=== PATIENT | male | born 1955 | race Caucasian/White ===

== ENCOUNTER → 2016-09-11 | Outpatient (CLI) | payer OTHER ==
[2016-09-11 14:06] LABS: Basophils % (A) 1 %; CH 27.1; CHCM 31.8; Eosinophils # (A) 0.1 k/uL (0-0.7); Eosinophils % (A) 2 %; HCT 45.7 % (39.0-53.0); HDW 2.76; HGB 14.6 gm/dL (13.0-17.5); Hypochromasia Slight; Luc % (Auto) 1; Lymphocytes # (A) 1.5 k/uL (1.0-4.8); Lymphocytes % (A) 21 %; MCH 27.3 pg (25.0-35.0); MCHC 31.9 g/dL (31.0-37.0); MCV 85.5 fL (80.0-100.0); Mean Platelet Volume 6.5; Monocytes # (A) 0.3 k/uL (0-1.0); Monocytes % (A) 4 %; Neutrophils # (A) 5.3 k/uL (1.3-7.7); Neutrophils % (A) 71 %; RBC 5.34 m/uL (4.30-5.90); RDW 14.1 % (11.5-15.5); WBC 7.4 k/uL (3.8-10.6); WBC (Perox) 8.09
[2016-09-11 14:09] LABS: INR 1.1 (<1.1); Partial Thromboplastin Time 22.2 sec (22.0-30.0); Prothrombin Time 10.7 sec (9.0-12.0)
[2016-09-11 14:19] LABS: ALT 41 U/L (21-72); AST 23 U/L (17-59); Alkaline Phosphatase 65 U/L (38-126); Anion Gap 12 mmol/L; Blood Urea Nitrogen 20 mg/dL (9-20); Calcium 9.2 mg/dL (8.4-10.2); Carbon Dioxide 24 mmol/L (22-30); Chloride 105 mmol/L (98-107); Glucose 135 mg/dL (74-99); Non-African American GFR(MDRD) >60 (>60 ml/min/1.73 sqM); Potassium 4.9 mmol/L (3.5-5.1); Sodium 141 mmol/L (137-145); Total Bilirubin 0.4 mg/dL (0.2-1.3); Total Protein 6.8 g/dL (6.3-8.2)
== END | disposition home or self-care (01) ==
LOC: LABPAT 12:36
PROVIDERS: ATTEND Orthopaedic Surgery Orthopaedic Surgery of the Spine
DX: Z01.812 Encounter for preprocedural laboratory examination (principal)
CPT/HCPCS: 80053; 85025; 85610; 85730; 86850; 86900; 86901; 87070

== ENCOUNTER 2016-09-19 05:55 | Inpatient (IN) | payer OTHER ==
[2016-09-17 15:35] VITALS: BMI 34.7
[~2016-09-19 05:55] MED LIST: BACITRACIN 50,000 UNIT, POLYMYXIN B 500,000 UNIT in SODIUM CHLORIDE 0.9% IRRIGATIO 1,00... IRRIGATION ONE; DEXAMETHASONE SOD PHOSPHATE 10 MG/ML 1 ML VIAL IV ONE; HYDROmorphone 1 MG/ML 1 ML SYRINGE IVP PRN; MIDAZOLAM 2 MG/2 ML VIAL IV PRN; ceFAZolin 3 GM in SODIUM CHLORIDE 0.9% 100 ML IVPB ONE
[2016-09-19 06:43] LABS: Glucose,Whole Blood 105 mg/dL (75-99)
[2016-09-19] MEDS: LACTATED RINGERS 1,000 ML IV SCH (06:44)
[2016-09-19] MEDS: ONDANSETRON 4 MG/2 ML VIAL IVP ONE ×2 (06:45→14:48)
[2016-09-19] MEDS ORDERED: LIDOCAINE 1% 20 ML VIAL (10MG/ML) FOR IV START INTRADERMA ONE (06:45)
--- NOTE | 2016-09-19 07:07 | XR ---
EXAMINATION TYPE: XR chest 2V DATE OF EXAM: 09/19/2016 7:00 AM COMPARISON: NONE HISTORY: Preop lumbar surgery. TECHNIQUE: Frontal and lateral views of the chest are obtained. FINDINGS: Heart and mediastinum are normal. Lungs are clear. Diaphragm is normal. Bony thorax is int act. There is no sign of pleural effusion. IMPRESSION: No active cardiopulmonary disease. Normal heart.
[2016-09-19] MEDS ORDERED: MIDAZOLAM 2 MG/2 ML VIAL ONE (07:30)
[2016-09-19] MEDS ORDERED: GLYCOPYRROLATE 0.2 MG/ML 2 ML VIAL ONE (07:30)
[2016-09-19] MEDS ORDERED: PHENYLEPHRINE-0.9% NACL SYG 1 MG/10 ML SYRINGE ONE (07:30)
[2016-09-19] MEDS ORDERED: BUPIVACAINE (PF) 0.25% 30 ML VIAL SQ ONE (07:30)
[2016-09-19] MEDS ORDERED: VECURONIUM 10 MG VIAL IV ONE (07:30)
[2016-09-19] MEDS ORDERED: fentaNYL (PF) 50 MCG/ML 2 ML AMP ONE (07:30)
[2016-09-19] MEDS ORDERED: GELATIN SPONGE,ABSORB (LARGE) 1 EACH SPONGE TOPICAL ONE (07:30)
[2016-09-19] MEDS ORDERED: HYDROmorphone (PF) 1 MG/ML ONE (07:30)
[2016-09-19] MEDS ORDERED: ALBUMIN HUMAN 5% 250 ML BOTTLE IVPB ONE (07:30)
[2016-09-19] MEDS ORDERED: SUCCINYLCHOLINE CHLORIDE VIAL 200 MG/10 ML VIAL IV ONE (07:30)
[2016-09-19] MEDS ORDERED: THROMBIN (BOVINE) 5,000 UNIT VIAL TOPICAL ONE (07:30)
[2016-09-19] MEDS ORDERED: PROPOFOL 10 MG/ML 20 ML VIAL IV ONE (07:30)
[2016-09-19] MEDS ORDERED: LIDOCAINE 0.5%-EPI 1:200,000 50 ML VIAL SQ ONE (07:30)
[2016-09-19] MEDS ORDERED: LACTATED RINGERS 1,000 ML IV ONE (09:48)
--- NOTE | 2016-09-19 09:59 | XR ---
Limited lumbar spine HISTORY: Needle placement Correlation to CT scan 12 July 2014 Single lateral view of the lumbar spine submitted. There is a metallic probe present over the posteri or elements of the L4 vertebral body. Listhesis present at L5-S1. Spondylolysis, loss of disc height at L5-S1 is noted. IMPRESSION: Orthopedic localization
[2016-09-19] MEDS ORDERED: HYDROmorphone 1 MG/ML 1 ML SYRINGE IVP PRN ×2 (11:45)
[2016-09-19] MEDS ORDERED: BENZOCAINE/MENTHOL LOZENG 1 EACH LOZENGE MUCOUS MEM PRN (11:45)
[2016-09-19] MEDS ORDERED: DIAZEPAM 5 MG TAB PO PRN (11:45)
[2016-09-19] MEDS ORDERED: HYDROcodone/APAP 5-325MG 1 EACH TAB PO PRN (11:45)
--- NOTE | 2016-09-19 11:56 | P.OP ---
Date of Procedure: 09/19/16 Preoperative Diagnosis: Grade 3 spondylolisthesis L5-S1, spinal stenosis L4 5 L5-S1, degenerative disc disease L4 5 L5-S1, facet arthrosis L4 5 L5-S1, spinal stenosis, lower extremity radiculopathy Postoperative Diagnosis: Same Anesthesia: GETA Pathology: none sent Condition: stable Disposition: PACU Description of Procedure: BRIEF OPERATIVE NOTE Preoperative Diagnosis: Grade 3 spondylolisthesis L5-S1, degenerative disc disease L4 5 L5-S1, spinal stenosis L4 5 L5-S1, facet arthrosis L4 5 L5-S1, lower extremity radiculopathy Postoperative Diagnosis: Same Procedure: Laminectomy and decompression L4 5 L5-S1 Posterior lateral decompression and fusion L4 5 L5-S1 Transforaminal lumbar interbody fusion for a 360 fusion L5-S1 Reduction of spondylolisthesis L5-S1 Discectomy for decompression L5-S1 Aspiration of bone marrow aspirate from right iliac crest through a separate fascial incision with a aspiration device Placement of interbody graft L5-S1 Local autogenous bone grafting Use of Cell Saver Use of bone graft extenders Use of neuro monitoring Surgeon: Dr. [employer] Supervisor: Je Sun is present throughout the entire the case persistence during positioning, dissection, exposure, visualization, and all crucial elements of the case as well as closure. Anesthesia: General anesthesia Estimated blood loss: Approximately 1000 mL with 414 given back through Cell Saver Complications: None apparent Components implanted: K2M [place] pedicle screw system with use of 6 pedicle screws measuring 6.5 and 7.5 m and two rods one cross-link and interbody peek cage at L5-S1 measuring 6 mm, along with osteo amp sponge and bone chips to be mixed with the bone marrow aspirate to supplemental local autogenous bone graft Disposition: To recovery room in good stable condition. OPERATIVE INDICATIONS The patient has had long-standing issues in their lower back and lower extremities. His found have a high-grade spondylolisthesis L5-S1 with severe degeneration and evidence of stenosis. His findings with stenosis L4 5 and L5- S1 correlate well with his low back and lower extremity symptoms. The patient has been through conservative treatment. He is not having any prolonged benefit despite aggressive conservative treatment. We discussed various treatment options including surgery, and the patient wishes to proceed with surgery We discussed the risk, patient's alternatives and benefits of surgery including but not limited to, risk of bleeding risk of infection, risk of need for further surgery, risk of decreased, loss of motion, muscle function, malunion nonunion, hardware failure, nerve damage, paralysis, heart attack, blindness and . OPERATIVE SUMMARY After discussing all the risks, patient alternatives and benefits at length, the patient elected to proceed with surgical intervention, signed informed consent, and presented for their procedure. The patient was seen and examined in the preoperative holding area and the surgical site was marked. The patient was given antibiotics and brought to the operating room. The patient was sedated and intubated by anesthesia in standard fashion. The patient was positioned on to the operating room table in a prone position on the appropriate frame which was well-padded and well molded. We were careful to pad any bony prominences and pressure points. We were careful to maintain the patient's cervical spine and good neutral alignment and position throughout. The patient was prepped and draped in a normal standard fashion. An appropriate timeout and keystone protocol performed. We were able to proceed with the surgery. The local wound area was infiltrated with local anesthetic. An incision was made at the midline longitudinally over the appropriate levels from L4 to S1 at L4 along with the spondylolisthesis L5-S1. Dissection was taken down subcutaneously to the level of the fascia which was split midline. Dissection was taken over the lamina bilaterally over the facet joints and to the transverse processes. Intraoperative x-ray was taken which showed a marker at the appropriate level. With the appropriate level positively confirmed, we were able to proceed with placement of the pedicle holes and screws. The patient had all their twitches back. The wound was copiously irrigated and suctioned dry as had been done periodically throughout the case. Screw holes were established similarly at each level. A sharp awl was used to establish the starting hole. It was palpated and found to have good for balderas and good base. A monitored Steffee probe was used to establish the pedicle hole. It was positioned so there was no stimulation at 12 mA. The hole was palpated and found to have good for balderas and a good base. The hole was tapped with the appropriate sized tap. The transverse process or sacral ala was decorticated with a high-speed bur. I was able to use these holes to place the appropriate size screw and good alignment and good position with good bony purchase. When the screws were inserted there were stimulated, and found to have no stimulation at 20 mA. Through a separate fascial incision on the right side I was able place a bone marrow aspirate device into the right iliac crest. I was able to seat it appropriately and then aspirated approximately 15 mL of bone marrow aspirate which was used to mix with the OsteAmp sponge and cancellus chips. These were use later in the case I was able to turn my attention to the decompression. decompression was performed with a combination of rongeurs, curettes, Kerrison rongeurs and a ball -tip feeler. All of the bone that was removed was stripped and morcellized for use as autogenous bone graft later in the case. There is an obvious large Ramachandran fragment at L5 which was removed and saved for bone grafting. There was severe bilateral foraminal stenosis causing significant impingement and this was relieved with the decompression. I was able to obtain good central decompression as well as wide bilateral foraminal decompression. There is no evidence of dural tear or leak. Good hemostasis was maintained. The wound was irrigated and suctioned dry. I performed a complete facetectomy at the appropriate level on the most symptomatic side on the right at L4 5 and L5-S1. All bone that was removed was saved for local autogenous bone grafting. I was able to gain access to the disc space at the appropriate level/levels. Good hemostasis was maintained. I was able to protect the neurologic structures. Note was made of obvious listhesis at L5-S1 and some disc protrusion dosing further stenosis. A discectomy was performed at L5-S1. This provided further decompression. I was also able to perform complete discectomy and endplate preparation with a combination of pituitary curettes, rasps and scrapers. With the interbody space prepared, I was able to do appropriate sizing. The appropriate size cage was chosen. The wound was irrigated and suctioned dry. The interbody space was packed with local autogenous bone graft and a small portion of bone graft substitute, as was the cage itself. Protecting the soft tissue structures, I was able place the cage in good alignment and good position with good fit and fill. There is no evidence of extrusion of the graft material nor protrusion of the interbody device. The wound was irrigated and suctioned dry. At L4 5 the disc was quite large and decided not to put an interbody spacers there may have been some impingement of the nerve during insertion. With the hardware intact, intraoperative x-ray was again taken which showed good alignment and position of the hardware at the appropriate levels at L4 5 and L5-S1 with some reduction of the listhesis L5-S1 with improved disc space. We were then able to measure, contour and place the rods and appropriate hardware bilaterally. I was able to place capcrews, tighten them down, and shear them off appropriately. The sheared portion was counted and accounted for. With this intact I was able to place the local autogenous bone graft with additional bone graft enhancer as necessary into the posterior lateral gutters bilaterally. With the bone graft intact, a stable construct, and good decompression at the appropriate levels, we were able to proceed with closure. Good hemostasis was maintained. There is no evidence of dural tear or leak. The fascia was closed for a watertight closure. The subcutaneous tissue was closed over a superficial drain. The subcuticular tissue was closed with absorbable suture. The wound was cleaned and dried and dressed with the appropriate dressing. The drapes were broken down. The patient was gently rolled back onto their hospital bed being careful to maintain their cervical spine and good neutral alignment and position. They were woken up by anesthesia , extubated, and brought to the recovery room in good stable condition. The patient will be admitted to the hospital for appropriate postoperative care , medical management and monitoring. We will continue to follow them closely about the postoperative course.
[2016-09-19 12:22] LABS: Glucose,Whole Blood 124 mg/dL (75-99)
--- NOTE | 2016-09-19 13:20 | XR ---
Limited lumbar spine HISTORY: Hardware placement, posterior lumbar fusion 2 views of the lumbar spine correlated to prior exam on same date at earlier time There is been interval posterior fusion at L4-5 S1. Alignment is stable. One of the transpedicular sc rews is thought to be coursing into the disc space at L3-4 on the left. IMPRESSION: Orthopedic follow-up as described
[2016-09-19] MEDS: HYDROmorphone PCA 5 MG/25 ML SYRINGE IV PRN (15:08)
[2016-09-19] MEDS: ceFAZolin 3 GM in SODIUM CHLORIDE 0.9% 100 ML IVPB SCH (16:12)
[2016-09-19] MEDS: GABAPENTIN 100 MG CAP PO SCH ×2 (16:12→21:32)
[2016-09-19] MEDS: GLIMEPIRIDE 2 MG TAB PO SCH (16:14)
[2016-09-19] MEDS: metFORMIN 500 MG TAB PO SCH (16:15)
--- NOTE | 2016-09-19 17:38 | P.CON ---
Consult Note - . Assessment/Plan:: This is a dictation on the consult for medical management. Dictating the consult by Dr. Carol Christianson FACP. Patient seen and evaluated post operative. Patient underwent decompression of the lumbar spine at L5-S1 with the underlying spondylolisthesis and severe pain and radiculopathy on the right lower extremities severe pain not resolving with conservative therapy including physical therapy, and the diagnosis is spondylo-listhesis at L4-L5 and L5-S1. Patient with the current medical history of: #1 diabetes mellitus type 2 on oral hypoglycemic agent #2 hyperlipidemia. #3 hypertension with hypertensive heart disease. #4 vitamin D insufficiency. #5 diabetic neuropathy. #6 low back pain with unsteady gait associated with degenerative disc disease and diabetic neuropathy. #7 history of nephrolithiasis was treated by urology associate. Patient had the right foot drop with brace, and he need dental care with the broken teeth and molar., Patient had no history of IN in the past. Review of system was -14 point. His vital sign: Was fluctuating with the lowest 94/69 with a mean 77. His heart rate was mild tachycardia and the highest was 108-1 13/m. Patient on DVT prophylaxis by using SCDs with intermittent compression post back surgery. On the exam: Patient on Tricia chair. Conscious alert oriented, his girlfriend at bedside, receiving dialyzed at 4 pain through URBAN ANTHROPOLOGIST with no pain rating at this time With the low blood pressure the give him Ringer lactate and will be by the anesthesia subsequently he will be changed to normal saline 75 mL an hour. And we'll be checking his BMP and CBC tomorrow in a.m. HEENT: Pupils equal reactive conjunctiva was pink sclera was nonicteric, oropharynx natural disease with the broken disease at the gumline several uvula midline and no facial symmetry nose was negative. Neck was supple no JVD no thyromegaly no lymph adenopathy trachea midline. Chest clear to auscultation and percussion no wheezes no rhonchi's no rales. The heart regular sinus rhythm with the tachycardia postoperative. Abdomen: Obese positive bowel sounds no tenderness on the 4 quadrant. Extremities: He has perfused lower extremities with atherothrombotic stocking for DVT prophylaxis. Neurologically stable and able to move his feet. Assessment and plan #1 borderline hypotension postoperative expected. #2 diabetes mellitus on oral hypoglycemic agent. #3 history of hypertension with hypertensive heart disease. #4 status post decompression with the right radiculopathy and spondylolisthesis. #5 diabetic neuropathy. Reviewed the laboratory was done in August 1716 indicating blood sugar was 135 and sodium 141 potassium 4.9 chloride 105 carbon dioxide 24 and blood urea nitrogen 20 creatinine 0.96 the glomerular filtration rate for non- more than 60. He has normal liver enzyme at that time and have pro-his pro time was 10.7 and INR was 1.1 and a PTT 22.2 with the white count was 7.4 and a hemoglobin 14.6 and the hematocrit 45.7 and the platelet count 244 and his urine analysis was negative for infection. Today we adjusted his lisinopril to 5 mg daily and to hold the blood pressure medication if the blood pressure less than 110 systolic. We'll start him on CBG before meals and at bedtime with the insulin Humalog to scale to be started in the level above 151 only with the patient underlying treated with metformin and glipizide and to monitor the hypoglycemia as well. The IV fluid will be change it to 0.9 normal saline tomorrow or tonight when the infusion of the finger lactate ordered by the doctor Bassam and anesthesia done. We'll check tomorrow in a.m. BMP and a CBC with differential. The the end of dictation thank you for letting participate in the care of Mr. Andrea orellana.
[2016-09-19] MEDS: ONDANSETRON 4 MG/2 ML VIAL IVP PRN (17:43)
[2016-09-19 17:51] LABS: Glucose,Whole Blood 142 mg/dL (75-99)
[2016-09-19] MEDS: INSULIN LISPRO (humaLOG) 300 UNIT/3 ML VIAL SQ SCH ×2 (17:59→21:31)
[2016-09-19 20:34] LABS: Glucose,Whole Blood 124 mg/dL (75-99)
[2016-09-19] MEDS ORDERED: LISINOPRIL 10 MG TAB PO SCH (21:00)
[2016-09-19] MEDS: METOPROLOL TARTRATE 25 MG TAB PO SCH (21:33)
[2016-09-19] MEDS: SODIUM CHLORIDE 0.9% 1,000 ML IV SCH ×2 (21:34→23:56)
[2016-09-20] MEDS: ceFAZolin 3 GM in SODIUM CHLORIDE 0.9% 100 ML IVPB SCH (00:02)
[2016-09-20] MEDS: HYDROcodone/APAP 5-325MG 1 EACH TAB PO PRN ×3 (06:09→20:53)
[2016-09-20 07:48] LABS: Glucose,Whole Blood 139 mg/dL (75-99)
[2016-09-20 08:31] LABS: Anion Gap 11 mmol/L; Blood Urea Nitrogen 16 mg/dL (9-20); Calcium 8.1 mg/dL (8.4-10.2); Carbon Dioxide 24 mmol/L (22-30); Chloride 103 mmol/L (98-107); Glucose 131 mg/dL (74-99); Non-African American GFR(MDRD) >60 (>60 ml/min/1.73 sqM); Potassium 4.3 mmol/L (3.5-5.1); Sodium 138 mmol/L (137-145)
[2016-09-20] MEDS: INSULIN LISPRO (humaLOG) 300 UNIT/3 ML VIAL SQ SCH ×4 (08:45→20:52)
[2016-09-20] MEDS: GABAPENTIN 100 MG CAP PO SCH ×3 (08:47→20:55)
[2016-09-20] MEDS: METOPROLOL TARTRATE 25 MG TAB PO SCH ×2 (08:47→20:54)
[2016-09-20] MEDS: metFORMIN 500 MG TAB PO SCH ×2 (08:48→17:36)
[2016-09-20] MEDS: CHOLECALCIFEROL 1,000 UNIT TAB PO SCH (08:48)
[2016-09-20] MEDS: LACTATED RINGERS 1,000 ML IV SCH (08:56)
[2016-09-20] MEDS ORDERED: SALMON OIL PO SCH (09:00)
[2016-09-20] MEDS ORDERED: OMEGA PO SCH (09:00)
[2016-09-20] MEDS ORDERED: FATTY ACIDS PO SCH (09:00)
--- NOTE | 2016-09-20 09:18 | P.PN ---
Subjective This dictation a progress note date of service 09/20/2016, dictated by Dr. Derick Christianson [facility]. Patient seen and evaluated [id number] Review the laboratories, BMP was normal with the estimated glomerular filtration rate more than 60, glucose has been monitored stable without added insulin so far. Calcium is 8.1 with the presence in the hospital and not eating much. CBC with differential ordered note available yet. His blood pressure was low postoperative now is stable normotensive and we will be cutting down the IV fluid to avoid over hydration, 50 mL an hour 0.9 normal saline. Also he had tachycardia and we will increase his beta blockers metoprolol tartrate to 50 mg in a.m. and 25 mg in the p.m. On the exam is able to stand up without dizziness and ambulate with the physical therapy. HEENT negative able to eat. Neck was supple and no JVD, he had mild conjunctival edema. The chest exam negative normal breath sound no wheezes no rhonchi's no rales. Heart was PMI in the fifth intercostal space outside midclavicular line with the regular sinus tachycardia. He the abdomen soft positive bowel sounds no organ enlargement. No flank pains able to urinate and the Valdez catheter will be removed prior Dr. Benoit T the orthopedic spine surgeon. Patient able to move his ankle extension and flexion which he has history of right foot drop appears to be improved significantly. Assessment and plan. Patient currently stable #1 changes in his medication has been mentioned above and the plan for decrease IV fluid and obtain CBC with differential with the assessment indicating #1 spondylolisthesis status post decompression with the underlying right lower leg pain with foot drop and sciatica. #2 diabetes mellitus type 2 currently controlled #3 hypertension with a history of temporary hypotension. Post op. #4 diabetic neuropathy. #5 tachycardia. Plan: Valdez catheter will be coming out this morning. And continuing the current medication added to the above changes discussed with the nursing staff as well. In regard of the DVT prophylaxis, RAYSHAWN Robin will be checking with Dr. Benoit the time for the start of DVT prophylaxis spatially with the back surgery. Objective - Vital Signs Vital signs: Vital Signs Temp 97.3 F L 09/20/16 07:00 Pulse 109 H 09/20/16 07:00 Resp 18 09/20/16 07:00 BP 120/66 09/20/16 07:00 Pulse Ox 93 L 09/20/16 07:00 Intake & Output 09/19/16 09/20/16 09/20/16 18:59 06:59 18:59 Intake Total 1901 1080 Output Total 1350 800 Balance 551 280 Weight 122.47 kg Intake: IV 1901 Oral 1080 Output: Urine 350 800 Estimated Blood Loss 1000 Other: Voiding Method Indwelling Catheter Indwelling Catheter - Labs CBC & Chem 7: 09/20/16 07:43 Labs: Abnormal Lab Results - Last 24 Hours (Table) 09/19/16 09/19/16 09/19/16 Range/Units 12:21 17:49 20:32 Glucose (74-99) mg/dL POC Glucose (mg/dL) 124 H 142 H 124 H (75-99) mg/dL Calcium (8.4-10.2) mg/dL 09/20/16 09/20/16 Range/Units 07:20 07:43 Glucose 131 H (74-99) mg/dL POC Glucose (mg/dL) 139 H (75-99) mg/dL Calcium 8.1 L (8.4-10.2) mg/dL
--- NOTE | 2016-09-20 09:31 | P.PN ---
Progress Note - Text Postoperative day #1 Patient is seen and examined today at bedside. The patient has some pain around the surgical site as expected. He has already been up and doing some ambulation. He is sitting at bedside. Pain is being controlled with medication with the MARKETING INSTRUCTOR as well as some oral medications. He is using the MARKETING INSTRUCTOR sparingly Physical Exam Afebrile with stable vital signs Abdomen is soft nontender. Chest has good excursion deep and space expiration The incision site is clean dry and intact. No erythema there is no purulence. The drain inadvertently came out last night and there is some minimal swelling. Extremities have had some mild neurologic improvement in dorsiflexion in his lower extremities from prior to surgery. Calves and thighs were soft nontender without evidence of DVT. Assessment/Plan Postoperative day #1 status post decompression and fusion L4 5 L5-S1 for his severe spondylolisthesis with spinal stenosis and lower extremity radiculopathy and weakness Patient is progressing as expected from the surgery. He had some tachycardia overnight is likely due to his acute blood loss anemia. We'll follow his CBC which is already ordered. We will continue to increase the patient's mobilization with therapy. He has been able to get up already which is good progress for him with some improvement in his lower extremity neurologic status. I discussed the case this morning with Dr. Medina. We will continue pain control with oral or IV medications. We'll continue to follow patient closely.
[2016-09-20 09:48] LABS: Basophils # (A) 0.1 k/uL (0-0.2); Basophils % (A) 0 %; CH 27.2; CHCM 31.9; Eosinophils % (A) 0 %; HCT 36.7 % (39.0-53.0); HDW 2.68; HGB 11.9 gm/dL (13.0-17.5); Hypochromasia Slight; Luc # (Auto) 0.11; Luc % (Auto) 1; Lymphocytes # (A) 0.9 k/uL (1.0-4.8); Lymphocytes % (A) 7 %; MCH 27.7 pg (25.0-35.0); MCHC 32.4 g/dL (31.0-37.0); MCV 85.7 fL (80.0-100.0); Mean Platelet Volume 7.5; Monocytes % (A) 7 %; Neutrophils # (A) 11.2 k/uL (1.3-7.7); Neutrophils % (A) 84 %; RBC 4.29 m/uL (4.30-5.90); RDW 14.4 % (11.5-15.5); WBC 13.3 k/uL (3.8-10.6); WBC (Perox) 13.01
[2016-09-20] MEDS: METOPROLOL TARTRATE 50 MG TAB PO SCH (10:26)
[2016-09-20] MEDS: SODIUM CHLORIDE 0.9% 1,000 ML IV SCH (10:30)
[2016-09-20 11:37] LABS: Hemoglobin A1C 6.3 % (4.2-6.1)
[2016-09-20 12:16] LABS: Glucose,Whole Blood 116 mg/dL (75-99)
[2016-09-20] MEDS: LISINOPRIL 5 MG TAB PO SCH (12:52)
[2016-09-20] MEDS: HYDROmorphone PCA 5 MG/25 ML SYRINGE IV PRN (16:53)
[2016-09-20 17:26] LABS: Glucose,Whole Blood 138 mg/dL (75-99)
[2016-09-20] MEDS: GLIMEPIRIDE 2 MG TAB PO SCH (17:36)
[2016-09-20 20:28] LABS: Glucose,Whole Blood 136 mg/dL (75-99)
[2016-09-21] MEDS: LACTATED RINGERS 1,000 ML IV SCH (05:33)
[2016-09-21] MEDS: SODIUM CHLORIDE 0.9% 1,000 ML IV SCH ×2 (05:33→18:02)
[2016-09-21] MEDS: ONDANSETRON 4 MG/2 ML VIAL IVP PRN ×2 (07:08→19:32)
[2016-09-21 07:13] LABS: Glucose,Whole Blood 107 mg/dL (75-99)
[2016-09-21 07:27] LABS: Basophils % (A) 0 %; CHCM 32.1; Eosinophils # (A) 0.1 k/uL (0-0.7); Eosinophils % (A) 0 %; HCT 37.1 % (39.0-53.0); HDW 2.74; HGB 11.6 gm/dL (13.0-17.5); Luc # (Auto) 0.11; Luc % (Auto) 1; Lymphocytes % (A) 8 %; MCH 26.5 pg (25.0-35.0); MCHC 31.4 g/dL (31.0-37.0); MCV 84.4 fL (80.0-100.0); Mean Platelet Volume 7.3; Monocytes # (A) 0.8 k/uL (0-1.0); Monocytes % (A) 6 %; Neutrophils % (A) 85 %; RDW 14.3 % (11.5-15.5); WBC (Perox) 14.13
[2016-09-21] MEDS: INSULIN LISPRO (humaLOG) 300 UNIT/3 ML VIAL SQ SCH ×4 (07:28→21:04)
[2016-09-21] MEDS: GABAPENTIN 100 MG CAP PO SCH ×3 (07:58→21:36)
[2016-09-21] MEDS: metFORMIN 500 MG TAB PO SCH ×2 (07:58→18:04)
[2016-09-21] MEDS: CHOLECALCIFEROL 1,000 UNIT TAB PO SCH (07:59)
[2016-09-21] MEDS: METOPROLOL TARTRATE 50 MG TAB PO SCH (07:59)
[2016-09-21] MEDS: LISINOPRIL 5 MG TAB PO SCH (07:59)
[2016-09-21] MEDS ORDERED: SENNOSIDES-DOCUSATE SODIUM 1 EACH TAB PO PRN (08:18)
--- NOTE | 2016-09-21 08:29 | P.PN ---
Progress Note - Text Orthopedic Spine Patient is a pleasant 61-year-old male who is seen and examined at the bedside following posterior lateral decompression and fusion performed Saturday. Patient states he does not feel he is doing well postsurgically this morning. He states it has been slow to increase his ambulation. He has been able to ambulate short distances. He has difficulty transferring to and from the commode. He states he has been eating but has had some increased nausea this morning. He denies vomiting, fever, or chills. He continues to have some tachycardia postoperatively and has been seen and examined by his primary care provider Dr. Medina. His cardiac medications have been adjusted yesterday. He complains of pain primarily at the surgical site. He has been using his TECHNICAL SALES SUPPORT SPECIALIST less. Patient is eating and voiding freely without difficulty. He states he has not had a bowel movement since admission is usually pretty regularly. He states he has not been passing gas and has mild abdominal discomfort. Physical Exam Lumbar Fusion: Status post surgical day number 2 Patient is awake, alert, and oriented 3 Vital signs stable Good chest excursion with deep inspiration and expiration Abdomen soft nontender Dorsiflexion, plantarflexion, and extensor hallucis longus positive sustained bilaterally No signs or symptoms of DVT; no calf pain; pneumatic cuffs not currently intact bilateral lower extremities Dressing is clean, dry, and intact; no erythema, purulence, or signs of infection Hemovac drain previously removed Neurovascularly intact bilaterally lower extremities Pertinent studies taken on 09/21/2016: WBC 13.0 RBC 4.4 Hemoglobin 11.6 Hematocrit 37.1 Neutrophils 11.0 Pulse rhythm: 110 Assessment: Posterior lateral decompression and fusion L4-5 and L5-S1 Transforaminal lumbar interbody fusion L5-S1 Plan: 1. Ambulate as tolerated; work with Physical Therapy to increase mobilization 2. Continue pain control with IV and oral medications; we will plan to discontinue his TECHNICAL SALES SUPPORT SPECIALIST 3. Dressing changed to paper tape and 4 x 4's; Hemovac drain discontinued 4. Medical management can continue to manage patient for patient's other medical issues including tachycardia 5. We will plan to add Senokot-S and Milk of Magnesia twice a day when necessary for constipation 6. We will continue to follow the patient closely; We discussed the possibility of discharge to rehabilitation facility prior to returning home but the patient is unsure if he is willing to go to rehabilitation at this time 7. Patient can follow-up with Je Santana PA-C or Dr. Remigio Benoit at [facility] in 2-3 weeks following discharge 8. I will discuss this patient in detail with Dr. Remigio Benoit
[2016-09-21] MEDS: HYDROcodone/APAP 5-325MG 1 EACH TAB PO PRN ×3 (11:43→22:57)
[2016-09-21 11:46] LABS: Glucose,Whole Blood 137 mg/dL (75-99)
--- NOTE | 2016-09-21 15:14 | P.PN ---
Subjective Dictation on progress note date of service 09/21/2016. Patient seen and evaluated discussed with the patient and his significant other his girlfriend. The patient has experienced severe pain after his [employer] PIPE has been removed, but subsequently patient was treated and given the be pain medication currently his comfortable. CBC on September 14 71 WBC 13 hemoglobin 11.6/hematocrit 37.1 patient was bleeding with the surgery was estimated by Dr. pressure is 1 L approximate and patient currently has no evidence of severe anemia. He is still tachycardic intermittently and we increased his beta mahesh to 50 mg in the morning and 25 mg at night. His blood pressure is stable On exam: Blood sugar in the range of 137-136-107 with the good control with the current oral hypoglycemic agent. HEENT negative patient able to eat and swallow normally, his significant pain when he started to sit in bed and get to walk as initial step however he is now on pain medication fairly controlling the pain Neck was supple no lymphadenopathy, chest is clear to auscultation and percussion no wheezes no rhonchi's, heart is regular sinus rhythm with intermittent tachycardia, blood pressure has been stable at this time with no evidence of hypoglycemia. He is on 50 mL an hour normal saline 0.9%. Abdomen is obese positive bowel sounds no organ enlargement. Extremities no edema and the use of thrombotic stocking when a bed. The neurologically able to move 4 extremities and ambulate the right foot drop has cleared and able to move his ankle normally. Assessment: #1 decompression of the 05 S1 with the underlying the spondylolisthesis associated with neuropathy as well as right sciatica and right foot drop. #2 significant improvement on the right foot drop. #3 diabetes mellitus type 2 oral hypoglycemic agent and controlled. #4 his blood pressure with a history of hypertension, postoperatively as temporary decrease in his blood pressure however he recovered and also he have some blood loss however did not affect his hemoglobin seriously. #Discussed the DVT prophylaxis with Dr. Banegas and he advised that with the back surgery they do not use any anticoagulant to avoid bleeding and hematoma. Underlying mild anemia and it will be recovered probably after patient improving may need to have iron supplement and that will replenish his hemoglobin. Scuffled with the patient postoperative and probably he is requesting tomorrow [facility] for for further rehabilitation. Objective - Vital Signs Vital signs: Vital Signs Temp 98.2 F 09/21/16 07:00 Pulse 110 H 09/21/16 07:19 Resp 16 09/21/16 07:00 BP 133/77 09/21/16 07:00 Pulse Ox 95 09/21/16 07:00 Intake & Output 09/20/16 09/21/16 09/21/16 18:59 06:59 18:59 Intake Total 980 650 120 Output Total 1000 100 Balance -20 650 20 Intake: IV 500 350 Sodium Chloride 0.9% 1, 500 350 000 ml @ 50 mls/hr IV . Q20H [facility] Rx#:[id number] Oral 480 300 120 Output: Urine 1000 100 Uretheral ([place]) 1000 Other: Voiding Method Indwelling Catheter Toilet Toilet # Voids 1 1 1 - Labs CBC & Chem 7: 09/21/16 06:44 09/20/16 07:43 Labs: Abnormal Lab Results - Last 24 Hours (Table) 09/20/16 09/20/16 09/21/16 Range/Units 17:23 20:27 06:44 WBC 13.0 H (3.8-10.6) k/uL Hgb 11.6 L (13.0-17.5) gm/dL Hct 37.1 L (39.0-53.0) % Neutrophils # 11.0 H (1.3-7.7) k/uL POC Glucose (mg/dL) 138 H 136 H (75-99) mg/dL 09/21/16 09/21/16 Range/Units 06:51 11:41 WBC (3.8-10.6) k/uL Hgb (13.0-17.5) gm/dL Hct (39.0-53.0) % Neutrophils # (1.3-7.7) k/uL POC Glucose (mg/dL) 107 H 137 H (75-99) mg/dL
[2016-09-21 16:55] LABS: Glucose,Whole Blood 125 mg/dL (75-99)
[2016-09-21] MEDS: GLIMEPIRIDE 2 MG TAB PO SCH (18:03)
[2016-09-21] MEDS: MAGNESIUM HYDROXIDE 2,400 MG/10 ML CUP PO PRN (18:08)
[2016-09-21 21:01] LABS: Glucose,Whole Blood 144 mg/dL (75-99)
[2016-09-21] MEDS: METOPROLOL TARTRATE 25 MG TAB PO SCH (21:02)
[2016-09-22 02:21] LABS: Glucose,Whole Blood 138 mg/dL (75-99)
[2016-09-22] MEDS: LACTATED RINGERS 1,000 ML IV SCH (05:40)
[2016-09-22 06:55] LABS: Glucose,Whole Blood 133 mg/dL (75-99)
[2016-09-22 07:25] LABS: Basophils % (A) 0 %; CH 27.1; CHCM 31.6; Eosinophils # (A) 0.1 k/uL (0-0.7); Eosinophils % (A) 1 %; HCT 36.6 % (39.0-53.0); HDW 2.73; HGB 11.3 gm/dL (13.0-17.5); Hypochromasia Slight; Luc % (Auto) 2; Lymphocytes # (A) 1.2 k/uL (1.0-4.8); Lymphocytes % (A) 10 %; MCH 26.4 pg (25.0-35.0); MCHC 30.8 g/dL (31.0-37.0); MCV 85.8 fL (80.0-100.0); Mean Platelet Volume 6.6; Monocytes # (A) 0.8 k/uL (0-1.0); Monocytes % (A) 7 %; Neutrophils # (A) 9.5 k/uL (1.3-7.7); Neutrophils % (A) 80 %; RBC 4.26 m/uL (4.30-5.90); RDW 14.3 % (11.5-15.5); WBC 11.8 k/uL (3.8-10.6); WBC (Perox) 11.99
[2016-09-22 07:34] LABS: Anion Gap 9 mmol/L; Blood Urea Nitrogen 17 mg/dL (9-20); Calcium 8.3 mg/dL (8.4-10.2); Carbon Dioxide 26 mmol/L (22-30); Chloride 103 mmol/L (98-107); Glucose 124 mg/dL (74-99); Non-African American GFR(MDRD) >60 (>60 ml/min/1.73 sqM); Potassium 4.2 mmol/L (3.5-5.1); Sodium 138 mmol/L (137-145)
[2016-09-22] MEDS: INSULIN LISPRO (humaLOG) 300 UNIT/3 ML VIAL SQ SCH ×4 (07:44→20:01)
[2016-09-22] MEDS: metFORMIN 500 MG TAB PO SCH ×2 (08:15→18:07)
[2016-09-22] MEDS: CHOLECALCIFEROL 1,000 UNIT TAB PO SCH (08:15)
[2016-09-22] MEDS: MAGNESIUM HYDROXIDE 2,400 MG/10 ML CUP PO PRN (08:15)
[2016-09-22] MEDS: GABAPENTIN 100 MG CAP PO SCH ×3 (08:15→20:00)
[2016-09-22] MEDS: ONDANSETRON 4 MG/2 ML VIAL IVP PRN (08:15)
[2016-09-22] MEDS: METOPROLOL TARTRATE 50 MG TAB PO SCH ×2 (08:16→20:00)
[2016-09-22] MEDS: LISINOPRIL 5 MG TAB PO SCH (08:16)
[2016-09-22] MEDS: HYDROcodone/APAP 5-325MG 1 EACH TAB PO PRN ×3 (09:19→18:06)
--- NOTE | 2016-09-22 09:52 | P.PN ---
Subjective Principal diagnosis: Posterior lateral decompression and fusion L4-L5 and L5-S1 Transforaminal lumbar interbody fusion L5-S1 This is a 61 year-old male post posterior lateral decompression and fusion. This is post-op day 3. The patient was evaluated at the bedside today. The patient denies nausea, vomiting, abdominal pain, shortness of breath, and chest pain this morning. He states his pain is moderately controlled at this time. The patient has been ambulating in room and up to the bathroom. Objective - Vital Signs Vital signs: Vital Signs Temp 97.7 F 09/22/16 08:11 Pulse 112 H 09/22/16 08:11 Resp 16 09/22/16 08:11 BP 140/83 09/22/16 08:11 Pulse Ox 96 09/22/16 08:11 Intake & Output 09/21/16 09/22/16 09/22/16 18:59 06:59 18:59 Intake Total 360 1000 Output Total 500 840 Balance -140 160 Intake: IV 800 Sodium Chloride 0.9% 1, 800 000 ml @ 50 mls/hr IV . Q20H [facility] Rx#:[id number] Oral 360 200 Output: Urine 500 840 Other: Voiding Method Toilet Urinal # Voids 2 2 - Exam The patient does not appear in acute distress. Alert and orientated x3. Dressing is clean dry and intact. Incision appears fine with no erythema or active drainage. Calves are soft and nontender. Dorsiflexion and plantarflexion is intact bilaterally. Sensation and circulatory status is intact. Numbness in the right lower extremity has improved since surgery. - Labs CBC & Chem 7: 09/22/16 06:29 09/22/16 06:29 Labs: Abnormal Lab Results - Last 24 Hours (Table) 09/21/16 09/21/16 09/21/16 Range/Units 11:41 16:52 20:58 WBC (3.8-10.6) k/uL RBC (4.30-5.90) m/uL Hgb (13.0-17.5) gm/dL Hct (39.0-53.0) % MCHC (31.0-37.0) g/dL Neutrophils # (1.3-7.7) k/uL Glucose (74-99) mg/dL POC Glucose (mg/dL) 137 H 125 H 144 H (75-99) mg/dL Calcium (8.4-10.2) mg/dL 09/22/16 09/22/16 09/22/16 Range/Units 02:17 06:29 06:29 WBC 11.8 H (3.8-10.6) k/uL RBC 4.26 L (4.30-5.90) m/uL Hgb 11.3 L (13.0-17.5) gm/dL Hct 36.6 L (39.0-53.0) % MCHC 30.8 L (31.0-37.0) g/dL Neutrophils # 9.5 H (1.3-7.7) k/uL Glucose 124 H (74-99) mg/dL POC Glucose (mg/dL) 138 H (75-99) mg/dL Calcium 8.3 L (8.4-10.2) mg/dL 09/22/16 Range/Units 06:53 WBC (3.8-10.6) k/uL RBC (4.30-5.90) m/uL Hgb (13.0-17.5) gm/dL Hct (39.0-53.0) % MCHC (31.0-37.0) g/dL Neutrophils # (1.3-7.7) k/uL Glucose (74-99) mg/dL POC Glucose (mg/dL) 133 H (75-99) mg/dL Calcium (8.4-10.2) mg/dL Assessment and Plan (1) Spondylolisthesis at L5-S1 level Status: Acute (2) Spinal stenosis at L4-L5 level Status: Acute (3) Degenerative disc disease, lumbar Status: Acute (4) Status post spinal surgery Status: Acute Plan: 1. Continue pain control 2. DVT prophylaxis with SCDs 3. Continue physical therapy and ambulation 4. Anticipate discharge home vs. rehab in the next 1-2 days.
--- NOTE | 2016-09-22 10:16 | P.PN ---
Progress Note - Text Postoperative day #3 Patient is seen and examined today at bedside. The patient has some pain around the surgical site as expected. He feels his legs are doing well but he still has significant pain in his back. He is passing some gas and had a very small bowel movement. Pain is being controlled with medication. Physical Exam Afebrile with stable vital signs Abdomen is soft nontender. Chest has good excursion deep and space expiration The incision site is clean dry and intact. No erythema there is no purulence. The dressing is clear there is some mild swelling. Extremities have had some improvement in her strength in his lower extremities with his surgery. Calves and thighs were soft nontender without evidence of DVT. Assessment/Plan Postoperative day #3 Status post decompression and fusion L4 5 L5-S1 for his spondylolisthesis with spinal stenosis and lower extremity radiculopathy and weakness. Patient is progressing as expected from the surgery. He feels his improvement is slower than expected and his pain is worse than expected but he continues to make steady progress. We will continue to increase the patient's mobilization with therapy. We will continue pain control with oral or IV medications. We'll continue to follow patient closely. He does have some constipation though he had a small bowel movement. He should continue his laxatives. If he continues to improve he may be able to be discharged for home Saturday or Saturday.
[2016-09-22 11:57] LABS: Glucose,Whole Blood 139 mg/dL (75-99)
--- NOTE | 2016-09-22 13:58 | P.PN ---
Subjective There is a dictation on progress note date of service 09/22/[address] Carol Christianson [facility]. Patient seen [id number] discussed with him today his option as well for going home or penitentiary to continue rehabilitation. We discussed his laboratory with the current laboratory improvement on the white count is hemoglobin A1c 6.3 was well-controlled diabetes mellitus, however his heart rate is ranging between 09/04/2013 and despite of increasing his metoprolol to 50 mg in a.m. and 20 5 in the PM. With this finding only increasing the metoprolol to twice a day 50 mg started today. His vital signs stable no pyrexia no fever no chills his blood pressure is stable at this time with the adjusting his LISA inhibitor. We'll resume his statin home medication at this point. On the physical exam: HEENT negative able to eat and swallow no nausea no vomiting. Neck was supple no JVD no thyromegaly no lymphadenopathy trachea midline. Chest was clear to auscultation and percussion. Heart was regular sinus rhythm compensated Abdomen distended and tympanitic on percussion positive bowel sounds appear to be large amount of flatus and needs to be turned side and also to allow the gas when he have his physical therapy as well as when he ambulate. We will add Mylanta 2 or Maalox plus if it is available in the hospital 15 mL 3 times a day. Extremities: Positive pulses no edema and he was reading the thrombotic stocking for DVT prophylaxis. And he ambulate to the rehab frequently. Assessment: #1 status post decompression at the level of L4 S1 and sciatica on the right side with right foot drop, apparently resolved after the surgery. #2 diabetes mellitus type 2 with hemoglobin A1c 6.3 in good control and continue the current treatment. #3 history of hyperlipidemia. #4 history of hypertension currently controlled. #5 tachycardia still present. Plan: #1 start Mylanta 2 or Maalox +15 mg 3 times a day to release the flatus and the gaseous distention of the abdomen, abdomen is positive bowel sounds and he had mild bowel movement. #2 increase metoprolol to 50 mg twice a day. #3 ambulate. Physical therapy. ( Objective - Vital Signs Vital signs: Vital Signs Temp 97.7 F 09/22/16 08:11 Pulse 112 H 09/22/16 08:11 Resp 16 09/22/16 08:11 BP 140/83 09/22/16 08:11 Pulse Ox 96 09/22/16 08:11 Intake & Output 09/21/16 09/22/16 09/22/16 18:59 06:59 18:59 Intake Total 360 1000 Output Total 500 840 Balance -140 160 Intake: IV 800 Sodium Chloride 0.9% 1, 800 000 ml @ 50 mls/hr IV . Q20H [facility] Rx#:[id number] Oral 360 200 Output: Urine 500 840 Other: Voiding Method Toilet Urinal # Voids 2 2 - Labs CBC & Chem 7: 09/22/16 06:29 09/22/16 06:29 Labs: Abnormal Lab Results - Last 24 Hours (Table) 09/21/16 09/21/16 09/22/16 Range/Units 16:52 20:58 02:17 WBC (3.8-10.6) k/uL RBC (4.30-5.90) m/uL Hgb (13.0-17.5) gm/dL Hct (39.0-53.0) % MCHC (31.0-37.0) g/dL Neutrophils # (1.3-7.7) k/uL Glucose (74-99) mg/dL POC Glucose (mg/dL) 125 H 144 H 138 H (75-99) mg/dL Calcium (8.4-10.2) mg/dL 09/22/16 09/22/16 09/22/16 Range/Units 06:29 06:29 06:53 WBC 11.8 H (3.8-10.6) k/uL RBC 4.26 L (4.30-5.90) m/uL Hgb 11.3 L (13.0-17.5) gm/dL Hct 36.6 L (39.0-53.0) % MCHC 30.8 L (31.0-37.0) g/dL Neutrophils # 9.5 H (1.3-7.7) k/uL Glucose 124 H (74-99) mg/dL POC Glucose (mg/dL) 133 H (75-99) mg/dL Calcium 8.3 L (8.4-10.2) mg/dL 09/22/16 Range/Units 11:55 WBC (3.8-10.6) k/uL RBC (4.30-5.90) m/uL Hgb (13.0-17.5) gm/dL Hct (39.0-53.0) % MCHC (31.0-37.0) g/dL Neutrophils # (1.3-7.7) k/uL Glucose (74-99) mg/dL POC Glucose (mg/dL) 139 H (75-99) mg/dL Calcium (8.4-10.2) mg/dL
[2016-09-22] MEDS: MAG HYDROX/AL HYDROX/SIMETH 30 ML CUP PO SCH ×2 (16:31→20:01)
[2016-09-22 17:07] LABS: Glucose,Whole Blood 104 mg/dL (75-99)
[2016-09-22] MEDS: GLIMEPIRIDE 2 MG TAB PO SCH (18:07)
[2016-09-22 20:01] LABS: Glucose,Whole Blood 140 mg/dL (75-99)
[2016-09-22] MEDS: SODIUM CHLORIDE 0.9% 1,000 ML IV SCH (20:02)
[2016-09-23] MEDS: HYDROcodone/APAP 5-325MG 1 EACH TAB PO PRN ×2 (04:19→08:44)
[2016-09-23 07:02] LABS: Glucose,Whole Blood 114 mg/dL (75-99)
[2016-09-23 07:45] LABS: Cholesterol 145 mg/dL (<200); HDL Cholesterol 28 mg/dL (40-60); Triglycerides 169 mg/dL (<150)
[2016-09-23] MEDS: INSULIN LISPRO (humaLOG) 300 UNIT/3 ML VIAL SQ SCH ×2 (08:26→12:54)
[2016-09-23] MEDS: METOPROLOL TARTRATE 50 MG TAB PO SCH (08:46)
[2016-09-23] MEDS: GABAPENTIN 100 MG CAP PO SCH (08:46)
[2016-09-23] MEDS: LISINOPRIL 5 MG TAB PO SCH (08:46)
[2016-09-23] MEDS: metFORMIN 500 MG TAB PO SCH (08:46)
[2016-09-23] MEDS ORDERED: HYDROcodone/APAP 7.5-325MG 1 EACH TAB PO PRN ×2 (09:07)
[2016-09-23 09:09] VITALS: BP 133/74; PULSE 120; RESP 16; TEMP 98.1
[2016-09-23] MEDS: MAG HYDROX/AL HYDROX/SIMETH 30 ML CUP PO SCH (09:37)
--- NOTE | 2016-09-23 09:38 | P.PN ---
Subjective Principal diagnosis: Posterior lateral decompression and fusion L4-L5 and L5-S1 Transforaminal lumbar interbody fusion L5-S1 This is a 61 year-old male post posterior lateral decompression and fusion. This is post-op day 4. The patient was evaluated at the bedside today. The patient denies nausea, vomiting, abdominal pain, shortness of breath, and chest pain this morning. He states his pain is moderately controlled at this time. The patient has been ambulating in the hallway and up to the bathroom. He states he has had a few small bowel movements yesterday and this morning. Objective - Vital Signs Vital signs: Vital Signs Temp 98.1 F 09/23/16 07:00 Pulse 120 H 09/23/16 07:00 Resp 16 09/23/16 07:00 BP 133/74 09/23/16 07:00 Pulse Ox 97 09/23/16 07:00 Intake & Output 09/22/16 09/23/16 09/23/16 18:59 06:59 18:59 Intake Total 732 Output Total 450 Balance 282 Intake: IV 150 Sodium Chloride 0.9% 1, 150 000 ml @ 50 mls/hr IV . Q20H [facility] Rx#:[id number] Oral 582 Output: Urine 450 Other: Voiding Method Urinal # Voids 3 - Exam The patient does not appear in acute distress. Alert and orientated x3. Dressing is clean dry and intact. Incision appears fine with no erythema or active drainage. Calves are soft and nontender. Dorsiflexion and plantarflexion is intact bilaterally. Sensation and circulatory status is intact. Numbness in the right lower extremity has improved since surgery. - Labs CBC & Chem 7: 09/22/16 06:29 09/22/16 06:29 Labs: Abnormal Lab Results - Last 24 Hours (Table) 09/22/16 09/22/16 09/22/16 Range/Units 11:55 17:04 20:00 POC Glucose (mg/dL) 139 H 104 H 140 H (75-99) mg/dL Triglycerides (<150) mg/dL HDL Cholesterol (40-60) mg/dL 09/23/16 09/23/16 Range/Units 06:45 07:00 POC Glucose (mg/dL) 114 H (75-99) mg/dL Triglycerides 169 H (<150) mg/dL HDL Cholesterol 28 L (40-60) mg/dL Assessment and Plan (1) Spondylolisthesis at L5-S1 level Status: Acute (2) Spinal stenosis at L4-L5 level Status: Acute (3) Degenerative disc disease, lumbar Status: Acute (4) Status post spinal surgery Status: Acute Plan: 1. Continue pain control 2. DVT prophylaxis with SCDs 3. Continue physical therapy and ambulation 4. Anticipate discharge home today or tomorrow
[2016-09-23 11:42] LABS: Glucose,Whole Blood 137 mg/dL (75-99)
--- NOTE | 2016-09-23 12:11 | P.PN ---
Subjective This is dictation on progress note follow-up due to of service 09/23/2016, dictating the progress note by Dr. Carol Christianson FACP. Patient stated that he is going home today apparently has been discharged by the orthopedic and his medication was also addressed by the orthopedic and given prescription. His blood pressure medication has been addressed and discussed with the patient and the new prescription for lisinopril 5 mg 30 and 3 refills has been send to [facility] as well as he has metoprolol tartrate 50 mg twice a day and new prescription was ascended to [facility]. Patient seen today by Kiba the PAC of Dr. Benoit and apparently discharged home. On the physical exam patient's conscious alert oriented 3 and he is able to ambulate, and his pain under control with the increase of the pain medication hydrocodone APAP 7.5/325 "" [place] Q4 to 6 hour when necessary and given prescription 60. Her the physician assistat. The on exam: Chest was clear to auscultation and percussion no wheezes no rhonchi's, Heart regular sinus rhythm however he had still mild tachycardia was compensative heart at this point his medication has been addressed and metoprolol has been increased. Abdomen soft positive bowel sound mildly distended and he is on Maalox/plus/ Mylanta 2 to continue. Extremities no edema and currently during his present at the hospital he is on SCDs. Patient has back surgery and he did not have anticoagulation because of adverse effect with hematoma her advice of the surgeon Dr. Bneoit. Spent degenerative disc disease of the lumbar spine with the spine and stenosis L4-L5 L5-S1 with the associated disc spondylolisthesis. #2 underwent surgery with walking disability. #3 hypertension controlled #4 hyperlipidemia not present with that check on the lipid profile and actually the HDL is low we'll address that as outpatient. #5 diabetes mellitus type 2 on oral hypoglycemic agent and stable. Plan continue the current treatment with the new prescription for new medication was send to [facility]. Patient will follow-up in one week in the office thank you end of dictation. Objective - Vital Signs Vital signs: Vital Signs Temp 98.1 F 09/23/16 07:00 Pulse 120 H 09/23/16 07:00 Resp 16 09/23/16 07:00 BP 133/74 09/23/16 07:00 Pulse Ox 97 09/23/16 07:00 Intake & Output 09/22/16 09/23/16 09/23/16 18:59 06:59 18:59 Intake Total 732 Output Total 450 Balance 282 Intake: IV 150 Sodium Chloride 0.9% 1, 150 000 ml @ 50 mls/hr IV . Q20H [facility] Rx#:[id number] Oral 582 Output: Urine 450 Other: Voiding Method Urinal # Voids 3 - Labs CBC & Chem 7: 09/22/16 06:29 09/22/16 06:29 Labs: Abnormal Lab Results - Last 24 Hours (Table) 09/22/16 09/22/16 09/23/16 Range/Units 17:04 20:00 06:45 POC Glucose (mg/dL) 104 H 140 H (75-99) mg/dL Triglycerides 169 H (<150) mg/dL HDL Cholesterol 28 L (40-60) mg/dL 09/23/16 09/23/16 Range/Units 07:00 11:40 POC Glucose (mg/dL) 114 H 137 H (75-99) mg/dL Triglycerides (<150) mg/dL HDL Cholesterol (40-60) mg/dL
[2016-09-23] MEDS: CHOLECALCIFEROL 1,000 UNIT TAB PO SCH (13:00)
--- NOTE | 2016-09-24 08:39 | P.DS ---
Providers Date of admission: 09/19/16 05:55 Expected date of discharge: 09/23/16 Attending physician: Huang Benoit Consults: 09/19/16 11:45 Consult Physician Routine Consulting Provider: Jameson Medina Consult Reason/Comments: Medical management Do you want consulting provider notified?: Yes Primary care physician: Jameson Medina - Discharge Diagnosis(es) (1) Spondylolisthesis at L5-S1 level Status: Acute (2) Spinal stenosis at L4-L5 level Status: Acute (3) Degenerative disc disease, lumbar Status: Acute (4) Status post spinal surgery Status: Acute Hospital Course: This is a 61-year-old male with known history of spondylolisthesis, spinal stenosis, and degenerative disc disease of the lumbar spine . The patient presented for evaluation and our office. After discussion and consideration patient elects to proceed with posterior lateral decompression and fusion of L4 - L5 and L5-S1 with transforaminal lumber interbody fusion L5 to S1 The patient is seen preoperatively by his primary care physician and cleared for surgery. Patient is admitted to [facility] on 09/19/2016 for a posterior lateral decompression and fusion of L4- L5 and L5-S1 with transforaminal lumber interbody fusion L5 to S1. The procedure was performed without complication or sequelae. The patient is doing well postoperatively. Labs and vital signs are stable on day of discharge. On the day of discharge, the patient does not appear in acute distress. He is alert and oriented 3. Dressing is clean dry and intact. Incision appears fine with no erythema or active drainage. Bilateral calves are soft and nontender. Dorsiflexion and plantarflexion are intact bilaterally. Sensation and circulatory status is intact. Numbness to the right lower extremity has improved since surgery. Patient is discharged to home in stable condition. Pertinent Studies: Laboratory Tests 09/22/16 06:29 WBC 11.8 H RBC 4.26 L Hgb 11.3 L Hct 36.6 L Patient Condition at Discharge: Stable Plan - Discharge Summary New Discharge Prescriptions: HYDROcodone/APAP 7.5-325MG [Mcdonald 7.5-325] 1 - 2 tab PO Q4-6H PRN #60 tab PRN Reason: Pain Lisinopril [Zestril] 5 mg PO DAILY #30 tab Metoprolol Tartrate [Lopressor] 50 mg PO BID #60 tab Sennosides-Docusate Sodium [Senokot-S] 2 tab PO DAILY #30 tablet Discharge Medication List Cholecalciferol [Vitamin D3] 1,000 unit PO DAILY 03/25/14 [History] [place] Oil/[place]-3 Fatty Acids [Fish Oil 500 mg Softgel] 1,200 mg PO DAILY 03/25 [History] Glimepiride 2 mg PO AC-SUPPER 03/29/14 [History] metFORMIN HCL 1,000 mg PO BID 03/29/14 [History] Gabapentin [Neurontin] 200 mg PO TID 09/17/16 [History] HYDROcodone/APAP 7.5-325MG [Mcdonald 7.5-325] 1 - 2 tab PO Q4-6H PRN #60 tab [Rx] Lisinopril [Zestril] 5 mg PO DAILY #30 tab 09/23/16 [Rx] Metoprolol Tartrate [Lopressor] 50 mg PO BID #60 tab 09/23/16 [Rx] Sennosides-Docusate Sodium [Senokot-S] 2 tab PO DAILY #30 tablet 09/23/16 [Rx] Follow up Appointment(s)/Referral(s): Je Santana PAC [[facility] [employer]] - 1 Week (Office closed. Patient to call and schedule follow up appointment.) Jameson Medina MD [Primary Care Provider] - 1 Week (Office closed. Patient to call and schedule follow up appointment.) Patient Instructions/Handouts: *Surgery [facility] - ([place]) Lumbar Surgery Discharge Instructions Activity/Diet/Wound Care/Special Instructions: 1. Patient may shower without dressing in 3 days 2. Patient to change gauze dressing daily for 3 days then may keep dressing off 3. Patient should keep Steri-Strips intact and allow them to fall off naturally. 4. Patient should refrain from driving until at least after their first follow- up appointment in the office. 5. Patient should avoid excessive bending, twisting, and lifting; no lifting greater than 10 pounds 6. Do not soak in tub Discharge Disposition: HOME SELF-CARE
== END 2016-09-23 15:24 | disposition home or self-care (01) | DRG 460 ==
LOC: 2ORMAIN 05:55 → 3SUR 13:25
PROVIDERS: ADMIT Orthopaedic Surgery Orthopaedic Surgery of the Spine; ATTEND Orthopaedic Surgery Orthopaedic Surgery of the Spine
PROC: 0SG0071 Fusion of Lumbar Vertebral Joint with Autologous Tissue Substitute, Posterior Approach, Posterior Column, Open Approach (ICD-10-PCS; 2016-09-19)
PROC: 0SB40ZZ Excision of Lumbosacral Disc, Open Approach (ICD-10-PCS; 2016-09-19)
PROC: 0SG30AJ Fusion of Lumbosacral Joint with Interbody Fusion Device, Posterior Approach, Anterior Column, Open Approach (ICD-10-PCS; 2016-09-19)
PROC: 4A11X4G Monitoring of Peripheral Nervous Electrical Activity, Intraoperative, External Approach (ICD-10-PCS; 2016-09-19)
PROC: 07DR3ZZ Extraction of Iliac Bone Marrow, Percutaneous Approach (ICD-10-PCS; 2016-09-19)
PROC: 30233N0 Transfusion of Autologous Red Blood Cells into Peripheral Vein, Percutaneous Approach (ICD-10-PCS; 2016-09-19)
PROC: 0SG30A1 (ICD-10-PCS; principal; 2016-09-19 07:30)
DX: M43.17 Spondylolisthesis, lumbosacral region (principal); E11.40 Type 2 diabetes mellitus with diabetic neuropathy, unspecified; I95.9 Hypotension, unspecified; D62 Acute posthemorrhagic anemia; I11.9 Hypertensive heart disease without heart failure; M41.85 Other forms of scoliosis, thoracolumbar region; M51.16 Intervertebral disc disorders with radiculopathy, lumbar region; M48.06 Spinal stenosis, lumbar region; M21.371 Foot drop, right foot; R26.2 Difficulty in walking, not elsewhere classified; R00.0 Tachycardia, unspecified; K59.00 Constipation, unspecified; R20.0 Anesthesia of skin; M79.661 Pain in right lower leg; E78.5 Hyperlipidemia, unspecified; R53.1 Weakness; R11.0 Nausea; E55.9 Vitamin D deficiency, unspecified; K03.81 Cracked tooth; J30.9 Allergic rhinitis, unspecified; Z79.84 Long term (current) use of oral hypoglycemic drugs; Z87.442 Personal history of urinary calculi; Z79.899 Other long term (current) drug therapy
CPT/HCPCS: 71020; 72020; 72100; 80048; 80061; 83036; 85025; 86850; 86900; 86901

== ENCOUNTER → 2018-01-28 | Outpatient (CLI) | payer OTHER ==
[2018-01-28 09:15] LABS: Anion Gap 14 mmol/L; Blood Urea Nitrogen 17 mg/dL (9-20); Calcium 8.6 mg/dL (8.4-10.2); Carbon Dioxide 27 mmol/L (22-30); Chloride 101 mmol/L (98-107); Glucose 198 mg/dL (74-99); Potassium 4.6 mmol/L (3.5-5.1); Sodium 142 mmol/L (137-145)
[2018-01-28 17:29] LABS: Vitamin D 25 Hydroxy 26.1 ng/mL (30.0-100.0)
[2018-01-28 18:20] LABS: Hemoglobin A1C 7.8 % (4.0-6.0)
== END | disposition home or self-care (01) ==
LOC: LABWHC1 07:58
PROVIDERS: ATTEND Internal Medicine
DX: E11.9 Type 2 diabetes mellitus without complications (principal); E55.9 Vitamin D deficiency, unspecified
CPT/HCPCS: 36415; 80048; 82306; 82607; 83036

== ENCOUNTER → 2018-04-02 | Outpatient (CLI) | payer OTHER ==
--- NOTE | 2018-04-02 16:10 | CONS ---
CONSULTATION This is a consultation note. 62-year-old male patient coming in for sleep apnea evaluation. The patient has been feeling very groggy and sleepy and tired during the day. He is retired. He retired back in 2006. 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 Since he retired, he has been sleeping between midnight and 7:00 am in the morning. He is snoring loudly. He has witnessed apneas based on his significant other and he has sleep fragmentation. During the day, he wakes up with dry mouth and he feels tired and he cannot fall asleep at any time. His [place] score is at 22. No sleep paralysis. No hallucinations. No cataplexy. No substance abuse. No head trauma. No history of any meningitis or any other neurologic disorders. PAST MEDICAL HISTORY: Diabetes, hypertension, hyperlipidemia, chronic back pain. Kidney stones. PAST SURGICAL HISTORY: Includes kidney stone removal and spine surgery. DRUG ALLERGIES: Not known. OUTPATIENT MEDICATION LIST: Includes metoprolol, metformin, Lisinopril, Lasix, Glimepiride, multivitamin and Lipitor. SOCIAL HISTORY: Nonsmoker. No history of alcoholism. No history of IV drugs. FAMILY HISTORY: Negative for sleep apnea. REVIEW OF SYSTEMS: 12-point review of system was done. The findings are mentioned in history of present illness. He has gained around 30-40 pounds over the past 10 years at least. He has become more sluggish and slow thinking, foggy, tired, sleepy and lethargic all the time. BP 142/89, pulse 98, respirations 16, temp 97.7, saturation 94% on room air. Weight 219, height is 6 feet 1 inch, neck size 18 inches. BMI 38.6. GENERAL APPEARANCE: Calm comfortable. Head is atraumatic, normocephalic. NECK: Supple. No JVD. No goiter or neck masses. Mallampati Class 1. He has facial hair including a mustache and a monsalve. LUNGS: Clear to auscultation. HEART: Sounds regular rate and rhythm. Normal S1, S2. No S3. No murmurs. ABDOMEN: Soft, nontender. No organomegaly. EXTREMITIES: No edema. No cyanosis or clubbing. NEUROLOGIC: Alert and oriented x3. There is no focal neurological deficits. SKIN: Negative for any wounds or ulceration. IMPRESSION: 1. Hypersomnia, [place] score of 22. The patient has snoring and history of apneas, rule out underlying obstructive sleep apnea. 2. Obesity with interval weight gain in the order of 30-40 pounds in excess. The patient currently has a body mass index of 38.6. 3. Loud snoring. 4. Hypertension. 5. Diabetes. 6. Hyperlipidemia. 7. Chronic back pain. 8. History of kidney stones. PLAN: 1. Encourage weight loss. 2. Sleep on his side. 3. Keep the head of the bed elevated. 4. Proceed with a screening polysomnogram looking for any significant sleep breathing disorder or sleep apnea to be treated. MMODL / IJN: [id number] /
== END | disposition home or self-care (01) ==
LOC: SLEEP 13:10
PROVIDERS: ATTEND Internal Medicine Critical Care Medicine
DX: G47.10 Hypersomnia, unspecified (principal); E66.9 Obesity, unspecified; R06.83 Snoring; I10 Essential (primary) hypertension; E11.9 Type 2 diabetes mellitus without complications; E78.5 Hyperlipidemia, unspecified; G89.29 Other chronic pain; M54.9 Dorsalgia, unspecified; Z87.442 Personal history of urinary calculi; Z68.38 Body mass index [BMI] 38.0-38.9, adult; Z79.84 Long term (current) use of oral hypoglycemic drugs; Z79.899 Other long term (current) drug therapy
CPT/HCPCS: 99211

== ENCOUNTER → 2018-09-16 | Outpatient (CLI) | payer OTHER ==
--- NOTE | 2018-09-16 11:47 | PN ---
PROGRESS NOTE A 63-year-old male patient coming in for a compliancy check regarding obstructive sleep apnea. The patient was diagnosed having severe SOULEYMANE with an AHI of 107 and the patient was titrated to a CPAP pressure of 16 cm of water. On today's evaluation. The patient reports marked improvement in sleep quality in general. He is waking up much more refreshed and alert during the day. No major hypersomnia or sleepiness during the day. Success score is still elevated at 16 overall improved. The patient states that he has a loving his machine, he is wearing it every night and compliance data is indicating the same. He is using his CPAP machine every night. His compliance data for more than 4 hours is 100%. His AHI while on treatment is down to 0.7, his leak factor 35 L/minute and he is averaging more than 7 hours of CPAP use per night. I evaluated his mask interface and the patient is using an Air Fit P10 large size nose pillows. PHYSICAL EXAMINATION: BP is 129/77, pulse 88, respirations 16, temperature 97.5, saturation is 99% on room air. Success score is 16, weight is 307. GENERAL APPEARANCE: Calm, comfortable. HEAD: Atraumatic, normocephalic. NECK: Supple. Mallampati class IV. There is no goiter or neck masses. LUNGS: Diminished breath sounds bilaterally, otherwise clear. HEART: Sounds regular rate and rhythm. Normal S1, S2. No S3. No murmurs. ABDOMEN: Soft, nontender. No organomegaly. EXTREMITIES: No edema. No cyanosis or clubbing. Neurologic is awake, awake and alert x3. There is no focal neurological deficits. IMPRESSION: 1. Severe obstructive sleep apnea with an apnea-hypopnea index of 107, currently on CPAP pressure of 16. Treatment is successful. 2. Morbid obesity. 3. Hypersomnia, improving. 4. Hypertension. 5. Hyperlipidemia. 6. Diabetes mellitus. 7. Chronic back pain. PLAN: 1. Encourage weight loss. 2. Continue CPAP therapy at a pressure of 16. 3. Treatment is successful with exception of some difficulty as having a good seal in the mask interface. Will switch this patient from an Air Fit P10 to a Nuance nose pillow, medium size. 4. The patient is very compliant, compliance data indicates that. The patient is benefitting from treatment. Will see me back in a year's time or follow up earlier if needed. No issues or complaints for now. This was a successful treatment. MMODL / IJN: [id number] /
== END ==
LOC: SLEEP 10:15
PROVIDERS: ATTEND Internal Medicine Critical Care Medicine
DX: G47.33 Obstructive sleep apnea (adult) (pediatric) (principal); E66.01 Morbid (severe) obesity due to excess calories; I10 Essential (primary) hypertension; E78.5 Hyperlipidemia, unspecified; E11.9 Type 2 diabetes mellitus without complications; G89.29 Other chronic pain; M54.9 Dorsalgia, unspecified; Z99.89 Dependence on other enabling machines and devices

== ENCOUNTER → 2018-09-29 | Outpatient (CLI) | payer OTHER ==
[2018-09-29 10:49] LABS: Basophils % (A) 0 %; Eosinophils # (A) 0.2 k/uL (0-0.7); Eosinophils % (A) 3 %; HCT 42.3 % (39.0-53.0); HGB 13.4 gm/dL (13.0-17.5); Lymphocytes # (A) 1.7 k/uL (1.0-4.8); Lymphocytes % (A) 23 %; MCH 26.8 pg (25.0-35.0); MCHC 31.6 g/dL (31.0-37.0); Mean Platelet Volume 6.6; Monocytes # (A) 0.5 k/uL (0-1.0); Monocytes % (A) 6 %; Neutrophils % (A) 66 %; Platelet Count 235 k/uL (150-450); RBC 4.98 m/uL (4.30-5.90); RDW 15.2 % (11.5-15.5); WBC 7.5 k/uL (3.8-10.6)
[2018-09-29 13:39] LABS: Erythrocyte Sedimentation Rate 14 mm/hr (0-15)
[2018-09-29 14:40] LABS: Appearance,Urine Clear (Clear); Bilirubin,Urine Negative (Negative); Blood,Urine Small (Negative); Color,Urine Light Yellow; Glucose,Urine (UA) 3+ (Negative); Ketones,Urine Negative (Negative); Leukocyte Esterase,Urine Trace (Negative); Mucus,Urine Rare /hpf; Nitrite,Urine Negative (Negative); Protein,Urine Negative (Negative); RBC,Urine 12 /hpf (0-5); Squamous Epithelial Cell,Urine <1 /hpf (0-4); Urobilinogen,Urine <2.0 mg/dL (<2.0); WBC,Urine 2 /hpf (0-5)
[2018-09-29 17:39] LABS: Hemoglobin A1C 8.6 % (4.0-6.0)
[2018-09-29 19:43] LABS: Albumin 4.4 g/dL (3.80-4.90); Albumin/Globulin Ratio 2.2 (1.60-3.17); Anion Gap 11.1 mmol/L (4.00-12.00); C Reactive Protein 1.1 mg/dL (0.0-0.8); Carbon Dioxide 22.9 mmol/L (21.6-31.8); LDL Cholesterol,Calculated 45.6 mg/dL (0.0-131.0); Potassium 4.6 mmol/L (3.5-5.5); Total Bilirubin 0.2 mg/dL (0.3-1.2); Total Protein 6.4 g/dL (6.2-8.2); VLDL Calculation 45.4 mg/dL (5.00-40.00)
[2018-09-29 19:54] LABS: Creatinine,Urine Random 63.2 mg/dL
== END | disposition home or self-care (01) ==
LOC: LABWHC1 09:15
PROVIDERS: ATTEND Internal Medicine
DX: E78.5 Hyperlipidemia, unspecified (principal); R80.9 Proteinuria, unspecified; E55.9 Vitamin D deficiency, unspecified; E03.9 Hypothyroidism, unspecified; I10 Essential (primary) hypertension; E87.8 Other disorders of electrolyte and fluid balance, not elsewhere classified; E11.9 Type 2 diabetes mellitus without complications; N40.0 Benign prostatic hyperplasia without lower urinary tract symptoms
CPT/HCPCS: 36415; 80053; 80061; 81001; 82306; 82550; 82570; 83036; 84153; 84156; 84443; 85025; 85652; 86140

== ENCOUNTER → 2018-10-28 | Outpatient (CLI) | payer OTHER ==
--- NOTE | 2018-10-28 11:05 | XR ---
EXAMINATION TYPE: XR KUB DATE OF EXAM: 10/28/2018 10:18 AM CLINICAL HISTORY: History of right-sided kidney stones with hematuria. TECHNIQUE: Two supine KUB images of the abdomen are obtained. COMPARISON: CT abdomen and pelvis July 12, 2014 lumbar spine x-ray September 19, 2016. FINDINGS: There is redemonstration of 4-5 right-sided renal calculi measuring up to 12 mm long axis. No definitive left-sided renal calculi. Postsurgical change L4-S1 level is redemonstrated. There is overall nonobstructive bowel gas pattern. IMPRESSION: Right-sided nephrolithiasis redemonstrated as detailed above. Incidental some improvement from 2014 CT.
[2018-10-28 11:28] LABS: Appearance,Urine Clear (Clear); Bilirubin,Urine Negative (Negative); Blood,Urine Large (Negative); Color,Urine Light Yellow; Glucose,Urine (UA) Trace (Negative); Ketones,Urine Negative (Negative); Leukocyte Esterase,Urine Trace (Negative); Mucus,Urine Rare /hpf; Nitrite,Urine Negative (Negative); Protein,Urine Negative (Negative); RBC,Urine 91 /hpf (0-5); Specific Gravity,Urine 1.009 (1.001-1.035); Urobilinogen,Urine <2.0 mg/dL (<2.0); WBC,Urine 5 /hpf (0-5)
== END | disposition home or self-care (01) ==
LOC: RADXRMAIN 09:58
PROVIDERS: ATTEND Internal Medicine
DX: N40.0 Benign prostatic hyperplasia without lower urinary tract symptoms (principal); E11.9 Type 2 diabetes mellitus without complications
CPT/HCPCS: 74018; 81001; 82043; 82570

== ENCOUNTER → 2018-11-07 | Outpatient (CLI) | payer OTHER ==
--- NOTE | 2018-11-08 12:05 | US ---
EXAMINATION TYPE: US kidneys/renal and bladder DATE OF EXAM: 11/07/2018 COMPARISON: CLINICAL HISTORY: R93.429 ,R31.9 HEMATURIA. History of right renal stones with surgical removal. Few weeks ago, right side discomfort. Microhematuria. EXAM MEASUREMENTS: Right Kidney: 10.7 x 4.8 x 5.3 cm Left Kidney: 13.0 x 5.2 x 5.7 cm Right Kidney: Multiple echogenic foci seen with shadowing. Largest lower pole, mid- 1.7 x 1.3 cm. L argest upper pole- 1.4 x 1.0 cm. Renal sinus appears heterogenous. Left Kidney: Medial anechoic lesion seen in hilum - 1.2 x 1.8 cm Bladder: distended, wnl Left jet seen There is no evidence for hydronephrosis at this point in time. The urinary bladder is anechoic. IMPRESSION: 1 nonobstructing right-sided nephrolithiasis. 2. Simple cyst left kidney.
== END | disposition home or self-care (01) ==
LOC: RADUSWWP 15:26
PROVIDERS: ATTEND Internal Medicine
DX: N20.0 Calculus of kidney (principal); N28.1 Cyst of kidney, acquired
CPT/HCPCS: 76770

== ENCOUNTER → 2018-12-10 | Outpatient (CLI) | payer OTHER ==
[2018-12-10 11:09] LABS: Basophils # (A) 0.1 k/uL (0-0.2); Basophils % (A) 1 %; Eosinophils # (A) 0.2 k/uL (0-0.7); Eosinophils % (A) 2 %; HCT 45.9 % (39.0-53.0); HGB 14.5 gm/dL (13.0-17.5); Lymphocytes % (A) 18 %; MCH 26.4 pg (25.0-35.0); MCHC 31.6 g/dL (31.0-37.0); MCV 83.7 fL (80.0-100.0); Mean Platelet Volume 6.5; Monocytes # (A) 0.6 k/uL (0-1.0); Monocytes % (A) 5 %; Neutrophils # (A) 8.2 k/uL (1.3-7.7); Neutrophils % (A) 73 %; Platelet Count 254 k/uL (150-450); RBC 5.48 m/uL (4.30-5.90); RDW 15.3 % (11.5-15.5); WBC 11.2 k/uL (3.8-10.6)
[2018-12-10 11:24] LABS: ALT 58 U/L (21-72); AST 31 U/L (17-59); Albumin 4.8 g/dL (3.5-5.0); Alkaline Phosphatase 80 U/L (38-126); Anion Gap 13 mmol/L; Blood Urea Nitrogen 25 mg/dL (9-20); Calcium 9.6 mg/dL (8.4-10.2); Carbon Dioxide 24 mmol/L (22-30); Chloride 103 mmol/L (98-107); Glucose 173 mg/dL (74-99); Potassium 4.6 mmol/L (3.5-5.1); Sodium 140 mmol/L (137-145); Total Bilirubin 0.5 mg/dL (0.2-1.3); Total Protein 7.4 g/dL (6.3-8.2)
[2018-12-10 11:29] LABS: Amorphous Sediment,Urine Occasional /hpf; Appearance,Urine Cloudy (Clear); Bacteria,Urine Rare /hpf; Bilirubin,Urine Negative (Negative); Blood,Urine Moderate (Negative); Color,Urine Yellow; Glucose,Urine (UA) Negative (Negative); Hyaline Casts,Urine 13 /lpf (0-2); Ketones,Urine Negative (Negative); Leukocyte Esterase,Urine Negative (Negative); Mucus,Urine Rare /hpf; Nitrite,Urine Negative (Negative); Protein,Urine Negative (Negative); RBC,Urine 45 /hpf (0-5); Specific Gravity,Urine 1.013 (1.001-1.035); Sperm,Urine Occasional /hpf; Squamous Epithelial Cell,Urine <1 /hpf (0-4); Urobilinogen,Urine <2.0 mg/dL (<2.0); WBC,Urine 1 /hpf (0-5)
== END | disposition home or self-care (01) ==
LOC: LABPAT 10:05
PROVIDERS: ATTEND Urology
DX: Z01.812 Encounter for preprocedural laboratory examination (principal); N20.0 Calculus of kidney; E11.9 Type 2 diabetes mellitus without complications
CPT/HCPCS: 36415; 80053; 81001; 85025

== ENCOUNTER 2018-12-17 07:03 | Observation (INO) | payer OTHER ==
--- NOTE | 2018-12-16 13:33 | P.GSHP ---
History of Present Illness H&P Date: 12/16/18 63 comes for a pcnl right due to a painful partial staghorn calculousright[> 2cm] Risks , complications and alternatives were discussed. - Constitutional Constitutional: Denies chills, Denies fever - EENT Eyes: denies blurred vision, denies pain Ears, nose, mouth and throat: Denies headache, Denies sore throat - Cardiovascular Cardiovascular: Denies chest pain, Denies shortness of breath - Respiratory Respiratory: Denies cough, Denies 7 - Gastrointestinal Gastrointestinal: Denies abdominal pain, Denies diarrhea, Denies nausea, Denies vomiting - Genitourinary (Female) Genitourinary: Denies dysuria, Denies hematuria - Genitourinary (Male) Genitourinary: Denies dysuria, Denies hematuria - Musculoskeletal Musculoskeletal: Denies myalgias - Integumentary Integumentary: Denies pruritus, Denies rash - Neurological Neurological: Denies numbness, Denies weakness - Psychiatric Psychiatric: Denies anxiety, Denies depression - Endocrine Endocrine: Denies fatigue, Denies weight change Past Medical History Past Medical History: Diabetes Mellitus, Hyperlipidemia, Hypertension, Osteoarthritis (OA), Skin Disorder Additional Past Medical History / Comment(s): KIDNEY STONES, SPONDYLOLISTHESIS, DDD, RT leg numbness & foot drop related to back issues; NEUROPATHY FEET. VITILIGO. USES CPAP. DENIES NE. 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 Past Anesthesia/Blood Transfusion Reactions: No Reported Reaction Smoking Status: Never smoker - Past Family History Mother Family Medical History: No Reported History Additional Family Medical History / Comment(s): PARKINSONS Father Family Medical History: Congestive Heart Failure (CHF) Medications and Allergies Home Medications Medication Instructions Recorded Confirmed Type Cholecalciferol [Vitamin D3] 1,000 unit PO DAILY 03/25/14 12/09/18 History Glimepiride 1 mg PO AC-BRKFST 03/29/14 12/09/18 History metFORMIN HCL 1,000 mg PO BID 03/29/14 12/09/18 History Atorvastatin [Lipitor] 10 mg PO HS 12/09/18 12/09/18 History Furosemide [Lasix] 20 mg PO DAILY 12/09/18 12/09/18 History Glimepiride [Amaryl] 2 mg PO HS 12/09/18 12/09/18 History Lisinopril [Zestril] 5 mg PO BID 12/09/18 12/09/18 History Loratadine [Claritin] 10 mg PO DAILY 12/09/18 12/09/18 History Metoprolol Tartrate [Lopressor] 50 mg PO TID 12/09/18 12/09/18 History Naproxen Sodium [Aleve] 220 mg PO BID PRN 12/09/18 12/09/18 History Allergies Allergy/AdvReac Type Severity Reaction Status Date / Time No Known Allergies Allergy Verified 12/09/18 11:16 Surgical - Exam - General well developed, well nourished, no distress - Eyes PERRL - ENT no hearing loss - Neck trachea midline - Respiratory normal expansion, normal respiratory effort - Cardiovascular Rhythm: regular - Abdomen Abdomen: soft, non tender Hernia: none - Genitourinary normal penis with no external lesions, testicles present - Integumentary no rash, no growths - Neurologic normal coordination, normal sensation - Musculoskeletal normal gait, normal posture - Psychiatric oriented to time, oriented to person, oriented to place, speech is normal, memory intact Results - Imaging Abdominal x-ray: report reviewed, image reviewed CT scan - abdomen: report reviewed, image reviewed CT scan - pelvis: report reviewed, image reviewed Assessment and Plan Assessment: Impression: RIght renal calculous right Plan; PCNL right
[~2018-12-17 07:03] MED LIST changes: -BACITRACIN 50,000 UNIT, POLYMYXIN B 500,000 UNIT in SODIUM CHLORIDE 0.9% IRRIGATIO 1,00... IRRIGATION ONE; +HYDROmorphone 0.5 MG/0.5 ML SYRINGE IVP PRN; -HYDROmorphone 1 MG/ML 1 ML SYRINGE IVP PRN; +LIDOCAINE 1% 20 ML VIAL (10MG/ML) FOR IV START INTRADERMA PRN; -MIDAZOLAM 2 MG/2 ML VIAL IV PRN; +ONDANSETRON 4 MG/2 ML VIAL IVP ONE; +SCOPOLAMINE 1.5MG/72HR PATCH TRANSDERM ONE; -ceFAZolin 3 GM in SODIUM CHLORIDE 0.9% 100 ML IVPB ONE
[2018-12-17] MEDS: LACTATED RINGERS 1,000 ML IV SCH (08:08)
[2018-12-17 08:22] LABS: Glucose,Whole Blood 174 mg/dL (75-99)
[2018-12-17] MEDS: ceFAZolin IN SWFI 2 GM/20 ML SYRINGE IVP ONE ×2 (09:20→09:28)
[2018-12-17] MEDS ORDERED: IOPAMIDOL-370 50ML BTL MISCELLANE ONE (09:40)
[2018-12-17] MEDS ORDERED: LACTATED RINGERS 1,000 ML IV ONE ×3 (10:47→11:56)
[2018-12-17] MEDS ORDERED: ONDANSETRON 4 MG/2 ML VIAL IVP PRN (11:43)
[2018-12-17] MEDS ORDERED: ACETAMINOPHEN TAB 325 MG TAB PO PRN (11:43)
[2018-12-17] MEDS ORDERED: NALOXONE 0.4 MG/ML 1 ML VIAL IV PRN (11:45)
[2018-12-17] MEDS ORDERED: HYDROMORPHONE (PF) 10 MG in SODIUM CHLORIDE 0.9% 49 ML IV PRN (11:45)
--- NOTE | 2018-12-17 11:51 | P.OP ---
Date of Procedure: 12/17/18 Preoperative Diagnosis: calculi with pain, large Postoperative Diagnosis: Same Procedure(s) Performed: Cystoscopy, placement of 5-Malian occluding balloon catheter, percutaneous nephrostomy (Dr. Whyte), percutaneous nephrostolithotomy with ultrasonic and l aser technique, placement of 12 J nephrostomy Anesthesia: MARYLU Surgeon: Candido Ramos Estimated Blood Loss (ml): 200 Pathology: other (Stone) Condition: stable Disposition: PACU Indications for Procedure: The patient is a 63-year-old gentleman with a history of stones and morbid obesity who has several stones, greater than 2 cm in diameter volume. He comes for a percutaneous nephrostolithotomy left Description of Procedure: The patient is brought to the operating suite. On the transport gurney is given a general endotracheal anesthesia. Rolls were placed underneath his hips he's placed in a frog position with a sterile prep and drape. Cystoscopy of the Foroblique lens and 22-Malian sheath identifies a normal urethra. Prostate is not obstructing. The right ureteral orifice is identified and intubated with a 5-Malian occluding balloon catheter passed up in the renal pelvis. The cystoscope removed. A 16-Malian Valdez catheters placed and secured to the ureteral catheter. The patient is placed in a prone position with care to his airways and extremities. Dr. Whyte of radiology performed percutaneous access to the left lower pole calyx. We successfully dilate the tract to 30-Malian and introduced the rigid nephroscope into the collecting system and remove clot. 2 large stones are identified a greater than 2 cm and require ultrasound to break and fragment small enough to grasp the fragments and remove them. I then do an intraoperative nephrostogram and identify stone in the middle pole calyx that would require flexible nephroscopy to access. I move into this calyx and identify very large stone. With the 3 and 65 laser probe I fracture the stone into tiny pieces in either flushed the fragments out or stone basket with a 1.9- Malian stone basket I clear that calyx. I then looked throughout the collecting system and remove any other small fragments up. Her introduced the rigid scope into the collecting system and remove fragments and clot. I then remove the nephroscope. I place a 12-Malian J nephrostomy tube over the working wire that sits in the renal pelvis. Its position is confirmed fluoroscopically. The working sheath is removed and the nephrostomy tube is secured to the skin with 2-0 silk suture ligatures. The patient tolerated the procedure well. His awake and returned recovery in good condition. Blood loss is approximately 200 mL. He'll be placed in the hospital postoperatively.
[2018-12-17] MEDS ORDERED: DEXAMETHASONE SOD PHOS (MDV) 100 MG/10 ML VIAL ONE (12:01)
[2018-12-17] MEDS ORDERED: SUCCINYLCHOLINE CHLORIDE 100 MG/5 ML SYR IV ONE (12:01)
[2018-12-17] MEDS ORDERED: ROCURONIUM BROMIDE 10 MG/ML 10 ML VIAL IV ONE (12:01)
[2018-12-17] MEDS ORDERED: MIDAZOLAM 2 MG/2 ML VIAL ONE (12:01)
[2018-12-17] MEDS ORDERED: NEOSTIGMINE 1 MG/ML 10 ML VIAL ONE (12:01)
[2018-12-17] MEDS ORDERED: LIDOCAINE 1% INJ 10MG/ML (20 ML MDV) ONE (12:01)
[2018-12-17] MEDS ORDERED: ONDANSETRON 4 MG/2 ML VIAL ONE (12:01)
[2018-12-17] MEDS ORDERED: fentaNYL (PF) 50 MCG/ML 2 ML AMP ONE (12:01)
[2018-12-17] MEDS ORDERED: PROPOFOL 10 MG/ML 20 ML VIAL IV ONE (12:01)
[2018-12-17] MEDS ORDERED: GLYCOPYRROLATE 0.2 MG/ML 2 ML VIAL ONE (12:01)
[2018-12-17 12:23] LABS: Glucose,Whole Blood 229 mg/dL (75-99)
--- NOTE | 2018-12-17 13:52 | FL ---
EXAMINATION TYPE: FL Perc Nephrostomy New Access DATE OF EXAM: 12/17/2018 COMPARISON: NONE HISTORY: right nephrolithiasis. PROCEDURE: Maximal barrier technique was utilized. The skin overlying the right kidney was localized using fluo roscopy and the overlying skin prepped and draped. Lidocaine used for local anesthesia. Skin cecilia w as made with a scalpel. Access was gained under fluoroscopy, following placement of a ureteral occlu norberto balloon by the referring clinician and instillation of air in the renal collecting system with a 21-gauge needle to the kidney. A suitable posterior calyx was chosen. A 0.018 inch wire was Graduway. The access site was dilated and subsequently a sheath was advanced into the renal pelvis follow ing dilation with balloon along the tract. Urine returned in the hub of the catheter. The patient und erwent nephrolithotomy by the referring clinician. The patient remained in stable condition without complication. The patient was discharged to observation. IMPRESSION: STATUS POST NEPHROSTOMY PLACEMENT FOR NEPHROLITHOTOMY WITH FLUOROSCOPIC GUIDANCE. THIS PROCEDURE PER FORMED BY THE UNDERSIGNED.
[2018-12-17] MEDS: SODIUM CHLORIDE 0.45% 1,000 ML IV SCH (14:08)
[2018-12-17 14:25] VITALS: BMI 38.9
[2018-12-17] MEDS: METOPROLOL TARTRATE 50 MG TAB PO SCH ×2 (16:43→21:15)
[2018-12-17] MEDS: metFORMIN 500 MG TAB PO SCH (16:43)
[2018-12-17 16:59] LABS: Glucose,Whole Blood 259 mg/dL (75-99)
[2018-12-17 20:25] LABS: Glucose,Whole Blood 234 mg/dL (75-99)
[2018-12-17] MEDS ORDERED: GLIMEPIRIDE 2 MG TAB PO SCH (21:00)
[2018-12-17] MEDS ORDERED: ATORVASTATIN 10 MG TAB PO SCH (21:00)
[2018-12-17] MEDS: LISINOPRIL 5 MG TAB PO SCH (21:15)
[2018-12-17] MEDS: MAG HYDROX/AL HYDROX/SIMETH 30 ML CUP PO PRN (23:51)
[2018-12-18] MEDS: MAG HYDROX/AL HYDROX/SIMETH 30 ML CUP PO PRN (04:40)
--- NOTE | 2018-12-18 06:48 | P.DS ---
Providers Date of admission: 12/17/18 07:03 Attending physician: Candido Ramos [facility] Course: The patient was admitted 12/17/2018 for a right percutaneous nephrostolithotomy. He underwent this without difficulty. He had a moderate pain overnight. His pain is better controlled this morning. His abdomen was soft. The Valdez catheter is clear. The nephrostomy tube urine is blood tinged. He will ambulate. If his pain is under control he can tolerate his diet and he'll be discharged home later today. He'll be given as prescription of [place]. He'll follow-up in the office on Saturday for catheter removal. Postoperative instructions of been given. His condition is good. Patient Condition at Discharge: Good Plan - Discharge Summary Discharge Rx Participant: Yes New Discharge Prescriptions: New HYDROcodone/APAP 5-325MG [[place] 5-325] 1 tab PO Q4HR PRN #10 tab PRN Reason: Pain Control No Action Cholecalciferol [Vitamin D3] 1,000 unit PO DAILY metFORMIN HCL 1,000 mg PO BID Glimepiride 1 mg PO AC-BRKFST Naproxen Sodium [Aleve] 220 mg PO BID PRN PRN Reason: Pain Loratadine [Claritin] 10 mg PO DAILY Metoprolol Tartrate [Lopressor] 50 mg PO TID Lisinopril [Zestril] 5 mg PO BID Glimepiride [Amaryl] 2 mg PO HS Atorvastatin [Lipitor] 10 mg PO HS Furosemide [Lasix] 20 mg PO DAILY Discharge Medication List Cholecalciferol [Vitamin D3] 1,000 unit PO DAILY 03/25/14 [History] Glimepiride 1 mg PO AC-BRKFST 03/29/14 [History] metFORMIN HCL 1,000 mg PO BID 03/29/14 [History] Atorvastatin [Lipitor] 10 mg PO HS 12/09/18 [History] Furosemide [Lasix] 20 mg PO DAILY 12/09/18 [History] Glimepiride [Amaryl] 2 mg PO HS 12/09/18 [History] Lisinopril [Zestril] 5 mg PO BID 12/09/18 [History] Loratadine [Claritin] 10 mg PO DAILY 12/09/18 [History] Metoprolol Tartrate [Lopressor] 50 mg PO TID 12/09/18 [History] Naproxen Sodium [Aleve] 220 mg PO BID PRN 12/09/18 [History] HYDROcodone/APAP 5-325MG [[place] 5-325] 1 tab PO Q4HR PRN #10 tab 12/18/18 [Rx] Follow up Appointment(s)/Referral(s): Candido Ramos MD [STAFF PHYSICIAN] - 12/22/18 Activity/Diet/Wound Care/Special Instructions: home with nephrostomy Discharge Disposition: HOME SELF-CARE
[2018-12-18] MEDS ORDERED: HYDROcodone/APAP 5-325MG 1 EACH TAB PO PRN (06:53)
[2018-12-18] MEDS ORDERED: GLIMEPIRIDE 1 MG TAB PO SCH (07:30)
[2018-12-18] MEDS: SODIUM CHLORIDE 0.45% 1,000 ML IV SCH ×2 (07:47→16:08)
[2018-12-18] MEDS: LACTATED RINGERS 1,000 ML IV SCH (07:47)
[2018-12-18 07:49] LABS: Glucose,Whole Blood 282 mg/dL (75-99)
[2018-12-18] MEDS: METOPROLOL TARTRATE 50 MG TAB PO SCH (08:21)
[2018-12-18] MEDS: metFORMIN 500 MG TAB PO SCH (08:21)
[2018-12-18] MEDS: LISINOPRIL 5 MG TAB PO SCH (08:21)
[2018-12-18] MEDS ORDERED: LORATADINE 10 MG TAB PO SCH (09:00)
[2018-12-18] MEDS ORDERED: FUROSEMIDE 20 MG TAB PO SCH (09:00)
[2018-12-18 11:45] LABS: Glucose,Whole Blood 273 mg/dL (75-99)
[2018-12-18 16:00] VITALS: BP 105/57; PULSE 102; RESP 18; TEMP 97.7
== END 2018-12-18 16:28 | disposition home or self-care (01) ==
LOC: INTOOBSV 07:03 → 2ORMAIN 07:03 → 4SSUR 11:40 → UNDODISIN 12-18 16:28
PROVIDERS: ADMIT Urology; ATTEND Urology
DX: N20.0 Calculus of kidney (principal); E11.42 Type 2 diabetes mellitus with diabetic polyneuropathy; E66.01 Morbid (severe) obesity due to excess calories; Z68.38 Body mass index [BMI] 38.0-38.9, adult; I10 Essential (primary) hypertension; E78.5 Hyperlipidemia, unspecified; M19.90 Unspecified osteoarthritis, unspecified site; M21.371 Foot drop, right foot; M43.10 Spondylolisthesis, site unspecified; Z79.84 Long term (current) use of oral hypoglycemic drugs; Z79.899 Other long term (current) drug therapy; Z87.442 Personal history of urinary calculi; Z82.0 Family history of epilepsy and other diseases of the nervous system; Z82.49 Family history of ischemic heart disease and other diseases of the circulatory system
CPT/HCPCS: 50081; 94760; 93005; 86900; 86901; 86850; 82365; 50432; G0378 ×2; G0379; C1769 ×3; C2628; C1729 ×2; C1894; J2250; J1100 ×2; J2710; J2405 ×2; J2001; J3010; J0330; J2704; J1170 ×2; J0690; Q9967

== ENCOUNTER → 2019-02-06 | Outpatient (CLI) | payer OTHER ==
[2019-02-06 16:23] LABS: African American GFR (CKD) 91.8 (60.0-200.0); Anion Gap 11.6 mmol/L (4.00-12.00); Calcium 9.7 mg/dL (8.7-10.3); Carbon Dioxide 23.4 mmol/L (21.6-31.8); Potassium 4.7 mmol/L (3.5-5.5)
== END | disposition home or self-care (01) ==
LOC: LABWHC1 09:23
PROVIDERS: ATTEND Internal Medicine
DX: E11.65 Type 2 diabetes mellitus with hyperglycemia (principal); N20.0 Calculus of kidney
CPT/HCPCS: 36415; 80048; 83036

== ENCOUNTER → 2019-06-30 | Outpatient (CLI) | payer OTHER ==
[2019-06-30 16:18] LABS: African American GFR (CKD) 73.6 (60.0-200.0); Anion Gap 9.7 mmol/L (4.00-12.00); BUN/Creat Ratio 13.33 Ratio (12.00-20.00); Calcium 9.4 mg/dL (8.7-10.3); Carbon Dioxide 27.3 mmol/L (21.6-31.8); Magnesium 1.7 mg/dL (1.5-2.4); Potassium 5.5 mmol/L (3.5-5.5)
[2019-06-30 17:27] LABS: Hemoglobin A1C 8.5 % (4.0-6.0)
== END | disposition home or self-care (01) ==
LOC: LABWHC1 09:12
PROVIDERS: ATTEND Internal Medicine
DX: E11.9 Type 2 diabetes mellitus without complications (principal); E87.8 Other disorders of electrolyte and fluid balance, not elsewhere classified
CPT/HCPCS: 36415; 80048; 83036; 83735

== ENCOUNTER → 2019-10-10 | Outpatient (CLI) | payer MEDICARE ==
[2019-10-10 09:43] LABS: Basophils # (A) 0.1 k/uL (0-0.2); Basophils % (A) 1 %; Eosinophils # (A) 0.2 k/uL (0-0.7); Eosinophils % (A) 3 %; HCT 46.3 % (39.0-53.0); HGB 14.5 gm/dL (13.0-17.5); Hypochromasia Slight; Lymphocytes % (A) 24 %; MCH 26.7 pg (25.0-35.0); MCHC 31.4 g/dL (31.0-37.0); MCV 85.1 fL (80.0-100.0); Mean Platelet Volume 7.1; Monocytes # (A) 0.4 k/uL (0-1.0); Monocytes % (A) 5 %; Neutrophils # (A) 5.5 k/uL (1.3-7.7); Neutrophils % (A) 65 %; Platelet Count 275 k/uL (150-450); RBC 5.44 m/uL (4.30-5.90); RDW 14.5 % (11.5-15.5); WBC 8.5 k/uL (3.8-10.6)
[2019-10-10 10:49] LABS: Erythrocyte Sedimentation Rate 13 mm/hr (0-15)
[2019-10-10 17:27] LABS: African American GFR (CKD) 73.1 (60.0-200.0); Albumin 4.7 g/dL (3.80-4.90); Albumin/Globulin Ratio 2.61 (1.60-3.17); Anion Gap 8.9 mmol/L (4.00-12.00); BUN/Creat Ratio 20.83 Ratio (12.00-20.00); C Reactive Protein 1.2 mg/dL (0.0-0.8); Calcium 9.4 mg/dL (8.7-10.3); Carbon Dioxide 29.1 mmol/L (21.6-31.8); Chol/HDL Ratio 4.63; Globulin 1.8 g/dL (1.6-3.3); Magnesium 1.7 mg/dL (1.5-2.4); Non-African American GFR(CKD) 63.1 (60.0-200.0); Phosphorus 3.4 mg/dL (2.4-5.1); Total Bilirubin 0.3 mg/dL (0.3-1.2); Total Protein 6.5 g/dL (6.2-8.2)
== END | disposition home or self-care (01) ==
LOC: LABWHC1 09:17
PROVIDERS: ATTEND Internal Medicine
DX: I10 Essential (primary) hypertension (principal); N40.0 Benign prostatic hyperplasia without lower urinary tract symptoms; E78.5 Hyperlipidemia, unspecified; E11.65 Type 2 diabetes mellitus with hyperglycemia; N20.0 Calculus of kidney; E55.9 Vitamin D deficiency, unspecified
CPT/HCPCS: 36415; 80053; 80061; 82550; 83735; 84100; 84443; 85025; 85652; 86140

== ENCOUNTER → 2020-02-23 | Outpatient (CLI) | payer MEDICARE ==
--- NOTE | 2020-02-23 18:25 | XR ---
EXAMINATION TYPE: XR KUB DATE OF EXAM: 02/23/2020 Comparison: 10/28/2018 Clinical History: 64-year-old male right-sided stone N20.0 Findings: L4-S1 posterior and interbody fusion. Possible 4 mm right renal calculus. Possible subtle residual curvilinear 8 mm calcification lower quin e right kidney. Possible punctate 2 mm left renal calculus. No suspicious calcification seen in the pelvis. Impression: Some residual right renal calculi are suggested measuring up to 8 mm, improved from 10/28/2018. Suspect a punctate 2 mm left-sided renal calculus as well.
== END | disposition home or self-care (01) ==
LOC: LABWHC1 14:31
PROVIDERS: ATTEND Urology
DX: N20.0 Calculus of kidney (principal)
CPT/HCPCS: 74018

== ENCOUNTER → 2020-02-29 | Outpatient (CLI) | payer MEDICARE ==
[2020-02-29 16:03] LABS: African American GFR (CKD) 91.1 (60.0-200.0); Anion Gap 7.5 mmol/L (4.00-12.00); Carbon Dioxide 23.5 mmol/L (21.6-31.8); Non-African American GFR(CKD) 78.6 (60.0-200.0); Potassium 4.7 mmol/L (3.5-5.5)
== END | disposition home or self-care (01) ==
LOC: LABWHC1 07:49
PROVIDERS: ATTEND Internal Medicine
DX: I10 Essential (primary) hypertension (principal); E11.65 Type 2 diabetes mellitus with hyperglycemia
CPT/HCPCS: 36415; 80048; 83036

== ENCOUNTER → 2020-07-01 | Outpatient (CLI) | payer MEDICARE, OTHER ==
[2020-07-01 14:56] LABS: C Reactive Protein 0.9 mg/dL (0.0-0.8); Uric Acid 4.6 mg/dL (3.7-8.7)
[2020-07-01 16:49] LABS: Hemoglobin A1C 8.6 % (4.0-6.0)
== END | disposition home or self-care (01) ==
LOC: LABWHC1 08:34
PROVIDERS: ATTEND Internal Medicine
DX: E11.65 Type 2 diabetes mellitus with hyperglycemia (principal); M10.9 Gout, unspecified
CPT/HCPCS: 36415; 82550; 82947; 83036; 84550; 85652; 86140

== ENCOUNTER → 2020-10-11 | Outpatient (CLI) | payer MEDICARE, OTHER ==
[2020-10-11 16:56] LABS: African American GFR (CKD) 72.6 (60.0-200.0); Anion Gap 11.9 mmol/L (4.00-12.00); Calcium 9.4 mg/dL (8.7-10.3); Carbon Dioxide 22.1 mmol/L (21.6-31.8); Non-African American GFR(CKD) 62.6 (60.0-200.0); Potassium 4.4 mmol/L (3.5-5.5)
[2020-10-11 17:35] LABS: Hemoglobin A1C 8.2 % (4.0-6.0)
== END | disposition home or self-care (01) ==
LOC: LABWHC1 09:23
PROVIDERS: ATTEND Internal Medicine
DX: E87.8 Other disorders of electrolyte and fluid balance, not elsewhere classified (principal); E11.65 Type 2 diabetes mellitus with hyperglycemia; T50.905A Adverse effect of unspecified drugs, medicaments and biological substances, initial encounter
CPT/HCPCS: 36415; 80048; 83036; 84450; 84460

== ENCOUNTER → 2021-01-20 | Outpatient (CLI) | payer MEDICARE, OTHER ==
[2021-01-20 10:13] LABS: Appearance,Urine Clear (Clear); Bacteria,Urine Rare /hpf; Bilirubin,Urine Negative (Negative); Blood,Urine Small (Negative); Color,Urine Light Yellow; Glucose,Urine (UA) 4+ (Negative); Hyaline Casts,Urine 1 /lpf (0-2); Ketones,Urine Negative (Negative); Leukocyte Esterase,Urine Trace (Negative); Mucus,Urine Rare /hpf; Nitrite,Urine Negative (Negative); Protein,Urine Trace (Negative); RBC,Urine 11 /hpf (0-5); Specific Gravity,Urine 1.021 (1.001-1.035); Urobilinogen,Urine <2.0 mg/dL (<2.0); WBC,Urine 7 /hpf (0-5)
[2021-01-20 10:29] LABS: Creatinine,Urine Random 82.7 mg/dL; Protein/Creatinine Ratio,Urine 0.242
[2021-01-20 14:35] LABS: Basophils # (A) 0.03 X 10*3/uL (0.00-0.10); Basophils % (A) 0.3 %; Eosinophils # (A) 0.23 X 10*3/uL (0.04-0.35); Eosinophils % (A) 2.6 %; HCT 50.3 % (39.6-50.0); HGB 15.4 g/dL (13.0-17.0); Lymphocytes # (A) 2.16 X 10*3/uL (0.90-5.00); Lymphocytes % (A) 24.7 %; MCH 26.2 pg (27.0-32.0); MCHC 30.6 g/dL (32.0-37.0); MCV 85.7 fL (80.0-97.0); Mean Platelet Volume 9.6 fL (9.5-12.2); Monocytes # (A) 0.64 X 10*3/uL (0.20-1.00); Monocytes % (A) 7.3 %; Neutrophils # (A) 5.64 X 10*3/uL (1.80-7.70); Neutrophils % (A) 64.6 %; Platelet Count 254 X 10*3/uL (140-440); RBC 5.87 X 10*6/uL (4.40-5.60); RDW 16.2 % (11.5-14.5); WBC 8.74 X 10*3/uL (4.50-10.00)
[2021-01-20 17:45] LABS: Hemoglobin A1C 7.5 % (4.0-6.0)
[2021-01-20 18:34] LABS: Erythrocyte Sedimentation Rate 6 mm/Hr (0-20)
[2021-01-20 21:32] LABS: C Reactive Protein 0.6 mg/dL (0.0-0.8); Magnesium 2.5 mg/dL (1.5-2.4)
[2021-01-20 21:33] LABS: African American GFR (CKD) 80.6 (60.0-200.0); Albumin/Globulin Ratio 2.27 (1.60-3.17); Anion Gap 15.5 mmol/L (4.00-12.00); BUN/Creat Ratio 17.27 Ratio (12.00-20.00); Calcium 9.7 mg/dL (8.7-10.3); Carbon Dioxide 21.5 mmol/L (21.6-31.8); Globulin 2.2 g/dL (1.6-3.3); Non-African American GFR(CKD) 69.6 (60.0-200.0); Potassium 4.9 mmol/L (3.5-5.5); Total Bilirubin 0.5 mg/dL (0.3-1.2); Total Protein 7.2 g/dL (6.2-8.2)
[2021-01-21 00:28] LABS: Urine Creatinine 70.6 mg/dL
== END | disposition home or self-care (01) ==
LOC: LABWHC1 08:59
PROVIDERS: ATTEND Internal Medicine
DX: Z00.00 Encounter for general adult medical examination without abnormal findings (principal); D64.9 Anemia, unspecified; E78.5 Hyperlipidemia, unspecified; R80.9 Proteinuria, unspecified; E55.9 Vitamin D deficiency, unspecified; N20.0 Calculus of kidney; I10 Essential (primary) hypertension; E11.65 Type 2 diabetes mellitus with hyperglycemia
CPT/HCPCS: 36415; 80053; 81001; 82043; 82306; 82550; 82570; 83036; 83735; 84156; 85025; 85652; 86140

== ENCOUNTER → 2021-02-08 | Outpatient (CLI) | payer MEDICARE, OTHER ==
[2021-02-08 16:06] LABS: Chol/HDL Ratio 5.19
== END | disposition home or self-care (01) ==
LOC: LABWHC1 08:28
PROVIDERS: ATTEND Internal Medicine
DX: Z00.00 Encounter for general adult medical examination without abnormal findings (principal); E78.5 Hyperlipidemia, unspecified
CPT/HCPCS: 36415; 80061

== ENCOUNTER → 2021-05-11 | Outpatient (CLI) | payer MEDICARE, OTHER ==
[2021-05-11 16:53] LABS: Hemoglobin A1C 7.2 % (4.0-6.0)
== END | disposition home or self-care (01) ==
LOC: LABWHC1 08:10
PROVIDERS: ATTEND Internal Medicine
DX: E11.65 Type 2 diabetes mellitus with hyperglycemia (principal)
CPT/HCPCS: 36415; 82947; 83036

== ENCOUNTER → 2021-09-06 | Outpatient (CLI) | payer MEDICARE, OTHER | END | disposition home or self-care (01) | LOC: LABWHC1 08:53 | PROVIDERS: ATTEND Internal Medicine | DX: E11.65 Type 2 diabetes mellitus with hyperglycemia (principal) | CPT/HCPCS: 36415; 82947; 83036 ==

== ENCOUNTER → 2022-05-07 | Outpatient (CLI) | payer MEDICARE, OTHER ==
[2022-05-07 18:57] LABS: African American GFR (CKD) 89.9 (60.0-200.0); Anion Gap 13.9 mmol/L (10.00-18.00); BUN/Creat Ratio 18.2 Ratio (12.00-20.00); Blood Urea Nitrogen 18.2 mg/dL (9.0-27.0); Calcium 9.2 mg/dL (8.7-10.3); Carbon Dioxide 22.1 mmol/L (20.0-27.5); Non-African American GFR(CKD) 77.5 (60.0-200.0); Potassium 4.5 mmol/L (3.5-5.5)
== END | disposition home or self-care (01) ==
LOC: LABWHC1 10:48
PROVIDERS: ATTEND Internal Medicine
DX: I10 Essential (primary) hypertension (principal); E11.65 Type 2 diabetes mellitus with hyperglycemia
CPT/HCPCS: 36415; 80048; 83036; 85652

== ENCOUNTER → 2022-07-27 | Outpatient (CLI) | payer MEDICARE, OTHER ==
[2022-07-27 14:38] LABS: Basophils # (A) 0.03 X 10*3/uL (0.00-0.10); Basophils % (A) 0.4 %; Eosinophils # (A) 0.18 X 10*3/uL (0.04-0.35); Eosinophils % (A) 2.3 %; HCT 49.1 % (39.6-50.0); HGB 15.4 g/dL (13.0-17.0); Immature Grans, Automated 0.3 %; Lymphocytes # (A) 1.95 X 10*3/uL (0.90-5.00); Lymphocytes % (A) 25.4 %; MCH 26.8 pg (27.0-32.0); MCHC 31.4 g/dL (32.0-37.0); MCV 85.5 fL (80.0-97.0); Mean Platelet Volume 9.3 fL (9.5-12.2); Monocytes # (A) 0.59 X 10*3/uL (0.20-1.00); Monocytes % (A) 7.7 %; NRBC Per 100 WBC 0 /100 WBCS (0.0-0.0); Neutrophils % (A) 63.9 %; Platelet Count 214 X 10*3/uL (140-440); RBC 5.74 X 10*6/uL (4.40-5.60); RDW 15.5 % (11.5-14.5); WBC 7.67 X 10*3/uL (4.50-10.00)
[2022-07-27 14:49] LABS: Erythrocyte Sedimentation Rate 20 mm/Hr (0-20)
[2022-07-27 14:51] LABS: Magnesium 2.1 mg/dL (1.5-2.4)
[2022-07-27 14:52] LABS: ALT 39 U/L (10-49); AST 27 U/L (14-35); African American GFR (CKD) 93.4 (60.0-200.0); Albumin 4.3 g/dL (3.8-4.9); Alkaline Phosphatase 86 U/L (41-126); BUN/Creat Ratio 19.61 Ratio (12.00-20.00); Carbon Dioxide 21.6 mmol/L (20.0-27.5); Chloride 104 mmol/L (96-109); Creatine Kinase 62 U/L (35-257); Globulin 2.2 g/dL (1.6-3.3); Glucose 163 mg/dL (70-110); Non-African American GFR(CKD) 80.5 (60.0-200.0); Phosphorus 3.1 mg/dL (2.4-5.1); Potassium 4.6 mmol/L (3.5-5.5); Sodium 140 mmol/L (135-145); Total Protein 6.5 g/dL (6.2-8.2); Uric Acid 5.1 mg/dL (3.7-8.7)
[2022-07-27 15:47] LABS: Chol/HDL Ratio 5.46 Ratio
== END | disposition home or self-care (01) ==
LOC: LABWHC1 09:02
PROVIDERS: ATTEND Internal Medicine
DX: Z00.00 Encounter for general adult medical examination without abnormal findings (principal); D64.9 Anemia, unspecified; N40.0 Benign prostatic hyperplasia without lower urinary tract symptoms; I10 Essential (primary) hypertension; E78.5 Hyperlipidemia, unspecified; E11.65 Type 2 diabetes mellitus with hyperglycemia; E03.9 Hypothyroidism, unspecified; E66.9 Obesity, unspecified; M81.0 Age-related osteoporosis without current pathological fracture; E55.9 Vitamin D deficiency, unspecified
CPT/HCPCS: 36415; 80053; 80061; 82306; 82550; 83036; 83721; 83735; 84100; 84153; 84443; 84550; 85025; 85652; 86140

== ENCOUNTER → 2023-05-07 | Outpatient (CLI) | payer MEDICARE, OTHER | END | disposition home or self-care (01) | LOC: LABWHC1 08:32 | PROVIDERS: ATTEND Internal Medicine | DX: E11.65 Type 2 diabetes mellitus with hyperglycemia (principal) | CPT/HCPCS: 36415; 82947; 83036 ==

== ENCOUNTER → 2023-08-14 | Outpatient (CLI) | payer MEDICARE, OTHER ==
[2023-08-14 15:17] LABS: ALT 41 U/L (10-49); AST 30 U/L (14-35); Albumin 4.4 g/dL (3.8-4.9); Albumin/Globulin Ratio 1.83 Ratio (1.60-3.17); Alkaline Phosphatase 87 U/L (41-126); Blood Urea Nitrogen 18.1 mg/dL (9.0-27.0); Calcium 9.8 mg/dL (8.7-10.3); Carbon Dioxide 27.1 mmol/L (21.6-31.8); Chloride 103 mmol/L (96-109); Globulin 2.4 g/dL (1.6-3.3); Glucose 131 mg/dL (70-110); Potassium 5.2 mmol/L (3.5-5.5); Sodium 143 mmol/L (135-145); Total Bilirubin 0.3 mg/dL (0.3-1.2); Total Protein 6.8 g/dL (6.2-8.2)
== END | disposition home or self-care (01) ==
LOC: LABWHC1 09:14
PROVIDERS: ATTEND Internal Medicine
DX: E11.65 Type 2 diabetes mellitus with hyperglycemia (principal)
CPT/HCPCS: 36415; 80053; 83036

== ENCOUNTER → 2023-11-19 | Outpatient (CLI) | payer MEDICARE, OTHER | END | disposition home or self-care (01) | LOC: LABWHC1 09:33 | PROVIDERS: ATTEND Internal Medicine | DX: E11.65 Type 2 diabetes mellitus with hyperglycemia (principal) | CPT/HCPCS: 36415; 82947; 83036 ==

== ENCOUNTER → 2023-12-19 | Outpatient (CLI) | payer MEDICARE ==
--- NOTE | 2023-12-20 12:29 | XR ---
EXAMINATION TYPE: XR lumbar spine 2 or 3V DATE OF EXAM: 12/19/2023 CLINICAL HISTORY: pain TECHNIQUE: Three views of the lumbar spine are submitted. COMPARISON: None. FINDINGS: Postoperative changes L4-5 L5-S1 with pedicular screws in place. Grade 2 anterolisthesis L5 on S1 jennifer suring 1.3 cm. Moderate multilevel degenerative disc space narrowing and spondylosis. IMPRESSION: Postoperative alignment as noted.
== END | disposition home or self-care (01) ==
LOC: RADXRMAIN 07:59
PROVIDERS: ATTEND Internal Medicine
DX: M48.07 Spinal stenosis, lumbosacral region (principal); M54.50 Low back pain, unspecified; Z98.890 Other specified postprocedural states
CPT/HCPCS: 72100

== ENCOUNTER → 2024-02-28 | Outpatient (CLI) | payer MEDICARE ==
[2024-02-28 15:44] LABS: BUN/Creat Ratio 18.56 Ratio (12.00-20.00); Blood Urea Nitrogen 16.7 mg/dL (9.0-27.0); Calcium 9.5 mg/dL (8.7-10.3); Carbon Dioxide 26.1 mmol/L (21.6-31.8); Chloride 106 mmol/L (96-109); Glucose 166 mg/dL (70-110); Magnesium 1.9 mg/dL (1.5-2.4); Potassium 4.7 mmol/L (3.5-5.5); Sodium 143 mmol/L (135-145)
== END | disposition home or self-care (01) ==
LOC: LABWHC1 09:10
PROVIDERS: ATTEND Internal Medicine
DX: E11.65 Type 2 diabetes mellitus with hyperglycemia (principal); I10 Essential (primary) hypertension
CPT/HCPCS: 36415; 80048; 83036; 83735

== ENCOUNTER → 2024-06-23 | Outpatient (CLI) | payer MEDICARE ==
[2024-06-23 10:45] LABS: Protein/Creatinine Ratio,Urine 0.135
[2024-06-23 15:20] LABS: Basophils # (A) 0.07 X 10*3/uL (0.00-0.10); Basophils % (A) 0.7 %; Eosinophils # (A) 0.14 X 10*3/uL (0.04-0.35); Eosinophils % (A) 1.4 %; HCT 46.8 % (39.6-50.0); Lymphocytes # (A) 2.45 X 10*3/uL (0.90-5.00); Lymphocytes % (A) 25.3 %; MCH 27.8 pg (27.0-32.0); MCHC 32.1 g/dL (32.0-37.0); MCV 86.8 FL (80.0-97.0); Monocytes % (A) 7.2 %; NRBC Per 100 WBC 0 X 10*3/uL (0.00-0.01); Neutrophils # (A) 6.31 X 10*3/uL (1.80-7.70); Neutrophils % (A) 65.1 %; Platelet Count 216 X 10*3/uL (140-440); RBC 5.39 X 10*6/uL (4.40-5.60); RDW 14.8 % (11.5-14.5)
[2024-06-23 15:50] LABS: Creatine Kinase 44 U/L (35-257)
[2024-06-23 15:51] LABS: % Iron Saturation 13.64 (15.00-50.00); ALT 28 U/L (10-49); AST 20 U/L (14-35); Albumin 4.4 g/dL (3.8-4.9); Albumin/Globulin Ratio 1.91 Ratio (1.60-3.17); Alkaline Phosphatase 96 U/L (41-126); BUN/Creat Ratio 21.27 Ratio (12.00-20.00); Blood Urea Nitrogen 23.4 mg/dL (9.0-27.0); C Reactive Protein <0.30 mg/dL (0.00-0.80); Calcium 9.2 mg/dL (8.7-10.3); Carbon Dioxide 23.5 mmol/L (21.6-31.8); Chloride 102 mmol/L (96-109); Chol/HDL Ratio 3.02 Ratio; Globulin 2.3 g/dL (1.6-3.3); Glucose 141 mg/dL (70-110); Iron 51 UG/DL (65-175); Magnesium 1.9 mg/dL (1.5-2.4); Phosphorus 3.2 mg/dL (2.4-5.1); Potassium 4.2 mmol/L (3.5-5.5); Prostate Specific Antigen 1.11 ng/mL (0.000-4.500); Sodium 139 mmol/L (135-145); Total Bilirubin 0.3 mg/dL (0.3-1.2); Total Iron Binding Capacity 374 UG/DL (228-460); Total Protein 6.7 g/dL (6.2-8.2); Uric Acid 3.3 mg/dL (3.7-8.7)
[2024-06-23 16:05] LABS: Erythrocyte Sedimentation Rate 18 mm/Hr (0-20)
[2024-06-23 22:41] LABS: Urine Creatinine 76.6 mg/dL (39.0-259.0)
== END | disposition home or self-care (01) ==
LOC: LABWHC1 09:25
PROVIDERS: ATTEND Internal Medicine
CPT/HCPCS: 36415; 80053; 80061; 82043; 82306; 82550; 82570; 82728; 83036; 83540; 83550; 83735; 84100; 84153; 84156; 84550; 85025; 85652; 86140

== ENCOUNTER → 2024-06-23 | Outpatient (CLI) | payer MEDICARE | END | disposition home or self-care (01) | LOC: LABPRL 16:00 | PROVIDERS: ATTEND Internal Medicine | DX: Z00.00 Encounter for general adult medical examination without abnormal findings (principal); Z53.9 Procedure and treatment not carried out, unspecified reason ==

== ENCOUNTER → 2024-06-24 | Outpatient (CLI) | payer MEDICARE | END | disposition home or self-care (01) | LOC: LABPRL 16:00 | PROVIDERS: ATTEND Internal Medicine | DX: Z53.9 Procedure and treatment not carried out, unspecified reason (principal) | CPT/HCPCS: 82272 ==

== ENCOUNTER → 2024-06-25 | Outpatient (CLI) | payer MEDICARE | END | disposition home or self-care (01) | LOC: LABWHC1 08:00 | PROVIDERS: ATTEND Internal Medicine | DX: Z53.9 Procedure and treatment not carried out, unspecified reason (principal) ==

== ENCOUNTER → 2024-09-21 | Outpatient (CLI) | payer MEDICARE ==
[2024-09-21 15:18] LABS: Basophils # (A) 0.04 X 10*3/uL (0.00-0.10); Basophils % (A) 0.5 %; Eosinophils % (A) 2.3 %; HCT 52.5 % (39.6-50.0); HGB 15.9 g/dL (13.0-17.0); Lymphocytes # (A) 2.35 X 10*3/uL (0.90-5.00); Lymphocytes % (A) 26.8 %; MCHC 30.3 g/dL (32.0-37.0); MCV 89.1 FL (80.0-97.0); Mean Platelet Volume 10.1 FL (9.5-12.2); Monocytes # (A) 0.81 X 10*3/uL (0.20-1.00); Monocytes % (A) 9.2 %; NRBC Per 100 WBC 0 X 10*3/uL (0.00-0.01); Neutrophils # (A) 5.37 X 10*3/uL (1.80-7.70); Neutrophils % (A) 61.1 %; Platelet Count 212 X 10*3/uL (140-440); RBC 5.89 X 10*6/uL (4.40-5.60); RDW 14.6 % (11.5-14.5); WBC 8.78 X 10*3/uL (4.50-10.00)
[2024-09-21 20:38] LABS: % Iron Saturation 13.76 (15.00-50.00)
== END | disposition home or self-care (01) ==
LOC: LABWHC1 10:48
PROVIDERS: ATTEND Internal Medicine
DX: E61.1 Iron deficiency (principal)
CPT/HCPCS: 36415; 82728; 83540; 83550; 85025

== ENCOUNTER → 2025-02-15 | Outpatient (CLI) | payer MEDICARE ==
[2025-02-15 09:43] LABS: African American GFR (CKD) >90 (>60 ml/min/1.73 sqM); Anion Gap 12 mmol/L; Blood Urea Nitrogen 22 mg/dL (9-20); Calcium 9.6 mg/dL (8.4-10.2); Carbon Dioxide 24 mmol/L (22-30); Chloride 106 mmol/L (98-107); Glucose 128 mg/dL (74-99); Non-African American GFR(CKD) >90 (>60 ml/min/1.73 sqM); Potassium 4.5 mmol/L (3.5-5.1); Sodium 142 mmol/L (137-145)
[2025-02-15 10:02] LABS: Creatinine,Urine Random 139.7 mg/dL; Protein/Creatinine Ratio,Urine 0.136
== END | disposition home or self-care (01) ==
LOC: LABWHC1 08:17
PROVIDERS: ATTEND Internal Medicine
DX: I10 Essential (primary) hypertension (principal); E11.65 Type 2 diabetes mellitus with hyperglycemia; E78.5 Hyperlipidemia, unspecified
CPT/HCPCS: 36415; 80048; 82043; 82570; 83036; 84156